=== PATIENT | male | born 1940 | race Caucasian/White ===

== ENCOUNTER → 2018-03-30 | Outpatient (CLI) | payer MEDICARE ==
[~2018-03-30] MED LIST: ACHYD1T PO; ASP81TEC PO; ATOR40TA PO; CPR500T PO; MTF500T PO; OXYC1TAB87 PO; PHEN200T27 PO; TMSL.4C PO
--- NOTE | 2018-03-30 09:53 | Diagnostic Imaging Report ---
PROCEDURE: CT urinary tract, rule out kidney stone. TECHNIQUE: Multiple contiguous axial images were obtained through the abdomen and pelvis without the use of intravenous contrast. INDICATION: Hematuria. Comparison is made with prior CT from 10/20/2012. The lung bases are clear. No discrete liver mass is detected. The gallbladder is surgically absent. No biliary ductal dilatation is seen. Pancreas and spleen are unremarkable. No adrenal mass is seen. There is a slight prominent portacaval node measuring 2.6-1.3 cm. The right kidney is unremarkable. There are several punctate nonobstructing calculi in the upper and lower pole of the left kidney. No definite ureteral calculi or hydronephrosis is seen. Aorta is not aneurysmal. No central retroperitoneal or mesenteric lymphadenopathy is detected. There is a generalized colonic diverticulosis but no evidence of acute diverticulitis. Imaging through the pelvis is limited due to streak artifact from patient's bilateral hip prostheses. There does appear to be some wall thickening of the urinary bladder, particularly along the left lateral wall measuring to a thickness of 7 mm. Radiation seed implants within the prostate are noted. Bony structures are nonacute. Impression: 1. Tiny nonobstructing left renal calculi. 2. Bladder wall thickening along the left lateral bladder wall. A bladder neoplasm cannot be entirely excluded. Cystoscopy would be recommended for further evaluation. 3. Uncomplicated colonic diverticulosis. Dictated by: Dictated on workstation # [id number]
== END ==
LOC: RAD 08:29
PROVIDERS: ATTEND Urology
DX: N32.89 Other specified disorders of bladder (principal); N20.0 Calculus of kidney; K57.30 Diverticulosis of large intestine without perforation or abscess without bleeding; Z90.49 Acquired absence of other specified parts of digestive tract
CPT/HCPCS: 74176

== ENCOUNTER 2018-04-02 12:45 | Inpatient (IN) | payer MEDICARE ==
[~2018-04-02] VITALS: Ht 177.8 cm; Wt 108.9 kg
--- OUTSIDE RECORDS SUMMARY | 2018-04-02 12:49 | XMS REPORT ---
Author Author LUPIS CAMPO [facility] Address [address] [place] [address] Care Team Providers Care Traffic Line Painter Name Role Phone LUPIS CAMPO Unavailable PROBLEMS Type Condition ICD9-CM Code [id number] Code Onset Dates Condition Status SNOMED Code Problem Prostate cancer C61 Active 839970674 Problem Comprehensive diabetic foot examination, type 2 DM, encounter for E11.9 Active 17762210 Problem Type II or unspecified type diabetes mellitus without mention of complication, not stated as uncontrolled E11.9 Active 56355161 Problem Insomnia, unspecified 780.52 Active 257889241 Problem Essential (primary) hypertension I10 Active 24927169 Problem Other obesity due to excess calories E66.09 Active 006773029 Problem Hammertoe of right foot M20.41 Active 014248348 Problem Body mass index (BMI) of 33.0-33.9 in adult Z68.33 Active 116694025 Problem Diabetic polyneuropathy associated with type 2 diabetes mellitus E11.42 Active 97854322 Problem Type 2 diabetes mellitus with complication, without long-term current use of insulin E11.8 Active 76432597 ALLERGIES No Known Allergies ENCOUNTERS Encounter Location Date Diagnosis [facility] [address] [facility] [id number] [place] [id number] Sep, Type 2 diabetes mellitus with complication, without long-term current use of insulin E11.8 [facility] [address] [facility] [id number] [id number] Jun, Encounter for diabetic foot exam E11.9 ; Type 2 diabetes mellitus with complication, without long-term current use of insulin E11.8 ; Diabetic polyneuropathy associated with type 2 diabetes mellitus E11.42 ; Hammertoe of right foot M20.41 ; Essential (primary) hypertension I10 ; Other obesity due to excess calories E66.09 and Body mass index (BMI) of 33.0-33.9 in adult Z68.33 [facility] [address] [id number] [place] [id number] May, Type II or unspecified type diabetes mellitus without mention of complication, not stated as uncontrolled E11.9 and Prostate cancer C61 [facility] [address] [id number] [place] [id number] Feb, Type II or unspecified type diabetes mellitus without mention of complication, not stated as uncontrolled E11.9 [facility] [address] [id number] [place] [id number] Feb, Type II or unspecified type diabetes mellitus without mention of complication, not stated as uncontrolled E11.9 [facility] [address] [id number] [place] [id number] Dec, Comprehensive diabetic foot examination, type 2 DM, encounter for E11.9 [facility] [address] [id number] [place] [id number] Nov, Type II or unspecified type diabetes mellitus without mention of complication, not stated as uncontrolled E11.9 [facility] [address] [id number] [place] [id number] Nov, Type II or unspecified type diabetes mellitus without mention of complication, not stated as uncontrolled E11.9 and Plantar callus L84 [facility] [id number] [place] [address], [place] [id number] Oct, Medicare welcome exam Z00.00 and Encounter for immunization Z23 [facility] [id number] [place] [id number] July, [facility] [address] [id number] [place] [id number] July, Type II or unspecified type diabetes mellitus without mention of complication, not stated as uncontrolled E11.9 [facility] [address] [id number] [place] [id number] Mar, Type II or unspecified type diabetes mellitus without mention of complication, not stated as uncontrolled E11.9 [facility] [address] [id number] [place] [id number] Feb, [facility] [address] [id number] [place] [id number] Feb, [facility] [address] [id number] [phone] Dec, Type II or unspecified type diabetes mellitus without mention of complication, not stated as uncontrolled E11.9 and Encounter for immunization Z23 [facility] [id number] [place] [id number] Aug, Type II or unspecified type diabetes mellitus without mention of complication, not stated as uncontrolled E11.9 [facility] [id number] [place] [id number] May, Type II or unspecified type diabetes mellitus without mention of complication, not stated as uncontrolled E11.9 [facility] [place] [id number] [place] [id number] Feb, Type II or unspecified type diabetes mellitus without mention of complication, not stated as uncontrolled E11.9 and Prostate cancer C61 [facility] [place] [address] [id number] [id number] Jan, [facility] [address] [id number] [place] [id number] Dec, [place] [id number] [place] [id number] Nov, Diabetes mellitus without mention of complication, type II or unspecified type, not stated as uncontrolled 250.00 [facility] [address] [place] [id number] Sep, [place] [id number] [place] [id number] Aug, Diabetes mellitus without mention of complication, type II or unspecified type, not stated as uncontrolled 250.00 and Neoplasm of unspecified nature of other genitourinary organs 239.5 [facility] [id number] [place] [address] Jun, [facility] [id number] [place] [address] Jun, [facility] [address] [place] [id number] Feb, [facility] [place] [facility] [address] [facility] [id number], [place] [address] Feb, [facility] [address] [facility] [id number][place] [phone] Feb, [facility] [place] [facility] [address] [facility] [id number], [place] [address] Feb, [facility] [address] [facility] [id number][place] [id number] Dec, [facility] [place] [facility] [address] [facility] [id number], [place] [address] Dec, [facility] [address] [facility] [id number][place] [phone] Sep, [facility] [place] [facility] [address] [facility] [id number], [place] [address] Sep, [facility] [address] [facility] [id number][place] [id number] May, [facility] [place] [facility] [address] [facility] [id number], [place] [address] May, [facility] [place] [facility] [address] [facility] [id number], [place] [address] May, [facility] [place] [facility] [address] [facility] [id number], [place] [address] May, [facility] [place] [facility] [address] [facility] [id number], [place] [address] Apr, [facility] [place] [facility] [address] [facility] [id number], [place] [address] Apr, [facility] [place] [facility] [address] [facility] [id number], [place] [address] Mar, [facility] [place] [facility] [address] [facility] [id number], [place] [address] Mar, [facility] [address] [facility] [id number], [place] [id number] Feb, [facility] [place] [facility] [address] [facility] [id number], [place] [address] Feb, [facility] [address] [facility] [id number], [place] [address] Feb, [facility] [address] [facility] [id number], [place] [id number] Feb, [facility] [address] [facility] [id number], [place] [id number] Feb, [facility] [address] [facility] [id number], [place] [address] Feb, [facility] [address] [facility] [id number][place] [id number] Jan, [facility] [address] [facility] [id number], [place] [address] Jan, IMMUNIZATIONS No Known Immunizations SOCIAL HISTORY Never Assessed REASON FOR VISIT diabetic may Batres RN PLAN OF CARE Activity Details Follow Up keep as scheduled with Edward WANG Reason: VITAL SIGNS Height 70.5 in 2017-06-14 Weight 234.8 lbs 2017-06-14 Temperature 97.3 degrees Fahrenheit 2017-06-14 Heart Rate 78 bpm 2017-06-14 Respiratory Rate 18 2017-06-14 BMI 33.21 kg/m2 2017-06-14 Blood pressure systolic 142 mmHg 2017-06-14 Blood pressure diastolic 86 mmHg 2017-06-14 MEDICATIONS Medication Instructions Dosage Frequency Start Date End Date Duration Status TRUEtest Test - as directed Aug, Active Metformin HCl 500 MG Orally twice a day 2 tab am 1 tab pm 12h Active Aspirin 325 MG Orally Once a day 1 tablet 24h Active Lipitor 40 mg Orally Once a day 1 tablet 24h Active Lisinopril 10 mg Orally Once a day 1 tablet 24h Feb, Active Flomax 0.4 mg take 1 capsule (0.4 mg) by oral route once daily 1/2 hour following the same meal each day Feb, Active RESULTS No Results PROCEDURES Procedure Date Ordered Result Body Site COUNT INCLUDES THE [facility] VISIT ESTABLISHED PATIENT June 14, 2017 COUNT INCLUDES THE [facility] VISIT ESTABLISHED PATIENT June 14, 2017 INSTRUCTIONS MEDICATIONS ADMINISTERED No Known Medications MEDICAL (GENERAL) HISTORY Type Description Date Medical History type II diabetes Medical History prostate cancer Surgical History cholecystectomy 2012 Surgical History prostate surgery, seeded prostate 2012 Surgical History left hip replacement x 3 2012 Surgical History left shoulder surgery 2014 Surgical History right ankle fused 2003 Surgical History lithotripsy 2003 Hospitalization History surgeries
--- OUTSIDE RECORDS SUMMARY | 2018-04-02 12:49 | XMS REPORT ---
Author Author SHAGGY BEY [facility] Address [address] [place] [address] Care Team Providers Care Information Assurance Manager Name Role Phone SHAGGY BEY Unavailable PROBLEMS Type Condition ICD9-CM Code OLR66-FS Code Onset Dates Condition Status SNOMED Code Problem Prostate cancer C61 Active 345718565 Problem Comprehensive diabetic foot examination, type 2 DM, encounter for E11.9 Active 97574421 Problem Type II or unspecified type diabetes mellitus without mention of complication, not stated as uncontrolled E11.9 Active 75414896 Problem Insomnia, unspecified 780.52 Active 213574134 Problem Essential (primary) hypertension I10 Active 99945762 Problem Other obesity due to excess calories E66.09 Active 938440737 Problem Hammertoe of right foot M20.41 Active 470748748 Problem Body mass index (BMI) of 33.0-33.9 in adult Z68.33 Active 026416781 Problem Diabetic polyneuropathy associated with type 2 diabetes mellitus E11.42 Active 16838270 Problem Type 2 diabetes mellitus with complication, without long-term current use of insulin E11.8 Active 58656878 ALLERGIES No Known Allergies ENCOUNTERS Encounter Location Date Diagnosis [id number] [id number] Oct, Encounter for removal of sutures Z48.[address] [place] [id number] Sep, Type 2 diabetes mellitus with complication, without long-term current use of insulin E11.8 [address] [place] [address] [id number] Jun, Encounter for diabetic foot exam E11.9 ; Type 2 diabetes mellitus with complication, without long-term current use of insulin E11.8 ; Diabetic polyneuropathy associated with type 2 diabetes mellitus E11.42 ; Hammertoe of right foot M20.41 ; Essential (primary) hypertension I10 ; Other obesity due to excess calories E66.09 and Body mass index (BMI) of 33.0-33.9 in adult Z68.33 [facility] [id number] [place] [address] [id number] May, Type II or unspecified type diabetes mellitus without mention of complication, not stated as uncontrolled E11.9 and Prostate cancer C61 [facility] [id number] [place] [address] [id number] Feb, Type II or unspecified type diabetes mellitus without mention of complication, not stated as uncontrolled E11.9 [facility] [address] [id number] [place] [id number] Feb, Type II or unspecified type diabetes mellitus without mention of complication, not stated as uncontrolled E11.9 [facility] [id number] [place] [address], [place] [id number] Dec, Comprehensive diabetic foot examination, type 2 DM, encounter for E11.9 [facility] [id number] [place] [address] [id number] Nov, Type II or unspecified type diabetes mellitus without mention of complication, not stated as uncontrolled E11.9 [facility] [id number] [place] [address] [id number] Nov, Type II or unspecified type diabetes mellitus without mention of complication, not stated as uncontrolled E11.9 and Plantar callus L84 [facility] [id number] [place] [address] [id number] Oct, Medicare welcome exam Z00.00 and Encounter for immunization Z23 [facility] [id number] [place] [address] [id number] July, [facility] [id number] [place] [address] [id number] July, Type II or unspecified type diabetes mellitus without mention of complication, not stated as uncontrolled E11.9 [facility] [id number] [place] [address], [place] [id number] Mar, Type II or unspecified type diabetes mellitus without mention of complication, not stated as uncontrolled E11.9 [facility] [id number] [place] [address] [id number] Feb, [facility] [address] [id number] [id number] Feb, [facility] [id number], [place] [id number] Dec, Type II or unspecified type diabetes mellitus without mention of complication, not stated as uncontrolled E11.9 and Encounter for immunization Z23 [facility] [id number], [place] [id number] Aug, Type II or unspecified type diabetes mellitus without mention of complication, not stated as uncontrolled E11.9 [facility] [id number], [place] [id number] May, Type II or unspecified type diabetes mellitus without mention of complication, not stated as uncontrolled E11.9 [facility] [id number], [place] [id number] Feb, Type II or unspecified type diabetes mellitus without mention of complication, not stated as uncontrolled E11.9 and Prostate cancer C61 [facility] [address] [facility] [address] [id number][place] [phone] Jan, [facility] [address] [id number], [place] [id number] Dec, [facility] [id number], [place] [id number] Nov, Diabetes mellitus without mention of complication, type II or unspecified type, not stated as uncontrolled 250.00 [facility] [id number], [place] [id number] Sep, [facility] [id number], [place] [id number] Aug, Diabetes mellitus without mention of complication, type II or unspecified type, not stated as uncontrolled 250.00 and Neoplasm of unspecified nature of other genitourinary organs 239.5 [facility] [address]00565100[place], [place] [address] Jun, [facility] [address]005[address]100[place], [place] [address] Jun, [facility] [address] [id number] [id number] Feb, [facility] [address] [facility] [id number], [place] [address]- [address] Feb, [facility] [address] [facility] [id number] [place] [id number] Feb, [facility] [place] [facility] [address] [facility] [id number], [place] [address] Feb, [facility] [address] [facility] [id number] [place] [id number] Dec, [facility] [place] [facility] [address] [facility] [id number] [place] [address]- [address] Dec, [facility] [address] [facility] [id number], [place] [id number] Sep, [facility] [place] [facility] [address]005[address]100[place], [place] [address] Sep, [facility] [address] [facility] [id number][place] [id number] May, [facility] [place] [facility] [address] [id number] [place] [address]- [address] May, [facility] [place] [facility] [address]100[place], [place] [address] May, [facility] [place] [facility] [address] [id number], [place] [address] May, [facility] [place] [facility] [address] [facility] [id number], [place] [address] Apr, [facility] [place] [facility] [address] [facility] [id number] [place] [address]- [address] Apr, [facility] [place] [facility] [address] [facility] [id number] [place] [address]- [address] Mar, [facility] [place] [facility] [address] [facility] [id number], [place] [address]- [address] Mar, [facility] [address] [facility] [id number], [place] [id number] Feb, [facility] [address] [facility] [id number] [place] [address] Feb, [facility] [address]00565100[place], [place] [address] Feb, [facility] [address] [id number], [place] [id number] Feb, [facility] [address] [id number], [place] [id number] Feb, [facility] [address] [facility] [id number], [place] [address] Feb, [facility] [address]005[address] [id number] Jan, [facility] [address] [facility] [id number], [place] [address] Jan, IMMUNIZATIONS No Known Immunizations SOCIAL HISTORY Never Assessed REASON FOR VISIT Diabetes follow up Medardo ZURITA PLAN OF CARE Activity Details Follow Up 3 Months Reason:dm VITAL SIGNS Height 70.5 in 2017-09-28 Weight 232 lbs 2017-09-28 Temperature 97.3 degrees Fahrenheit 2017-09-28 Heart Rate 76 bpm 2017-09-28 Respiratory Rate 16 2017-09-28 BMI 32.81 kg/m2 2017-09-28 Blood pressure systolic 128 mmHg 2017-09-28 Blood pressure diastolic 68 mmHg 2017-09-28 MEDICATIONS Medication Instructions Dosage Frequency Start Date End Date Duration Status Aspirin 325 MG Orally Once a day 1 tablet 24h Active Lisinopril 10 mg Orally Once a day 1 tablet 24h Feb, Active Metformin HCl 500 mg Orally twice a day 2 tab am 1 tab pm 12h Active TRUEtest Test - as directed Aug, Active Flomax 0.4 mg take 1 capsule (0.4 mg) by oral route once daily 1/2 hour following the same meal each day Feb, Active Lipitor 40 mg Orally Once a day 1 tablet 24h 0 Active RESULTS Name Result Date Reference Range A1C (IN HOUSE) 2017-09-28 A1C IN HOUSE 6.2 4.3 - 5.6 % Previous A1c 6.8 Lot [id number] Exp date 07/24 PROCEDURES Procedure Date Ordered Result Body Site [facility] VISIT ESTABLISHED PATIENT September 28, 2017 GLYCATED HEMOGLOBIN TEST September 28, 2017 INSTRUCTIONS MEDICATIONS ADMINISTERED No Known Medications MEDICAL (GENERAL) HISTORY Type Description Date Medical History type II diabetes Medical History prostate cancer Surgical History cholecystectomy 2012 Surgical History prostate surgery, seeded prostate 2013 Surgical History left hip replacement x 3 2012 Surgical History left shoulder surgery 2014 Surgical History right ankle fused 2002 Surgical History lithotripsy 2002 Hospitalization History surgeries
--- OUTSIDE RECORDS SUMMARY | 2018-04-02 12:49 | XMS REPORT ---
Author Author SHAGGY BEY [facility] Address [address] [place] [address] Care Team Providers Care Tooth Cutter Pinion Name Role Phone SHAGGY BEY Unavailable PROBLEMS Type Condition ICD9-CM Code [id number] Code Onset Dates Condition Status SNOMED Code Problem Prostate cancer C61 Active 098356989 Problem Comprehensive diabetic foot examination, type 2 DM, encounter for E11.9 Active 61338782 Problem Type II or unspecified type diabetes mellitus without mention of complication, not stated as uncontrolled E11.9 Active 40916145 Problem Insomnia, unspecified 780.52 Active 730384672 Problem Essential (primary) hypertension I10 Active 23583194 Problem Other obesity due to excess calories E66.09 Active 572588301 Problem Hammertoe of right foot M20.41 Active 561890039 Problem Body mass index (BMI) of 33.0-33.9 in adult Z68.33 Active 954370913 Problem Diabetic polyneuropathy associated with type 2 diabetes mellitus E11.42 Active 44981866 Problem Type 2 diabetes mellitus with complication, without long-term current use of insulin E11.8 Active 38083253 ALLERGIES No Known Allergies ENCOUNTERS Encounter Location Date Diagnosis [id number] [id number] Sep, [address] [place] [id number] Jun, Encounter for diabetic foot exam E11.9 ; Type 2 diabetes mellitus with complication, without long-term current use of insulin E11.8 ; Diabetic polyneuropathy associated with type 2 diabetes mellitus E11.42 ; Hammertoe of right foot M20.41 ; Essential (primary) hypertension I10 ; Other obesity due to excess calories E66.09 and Body mass index (BMI) of 33.0-33.9 in adult Z68.33 [id number] [id number] May, Type II or unspecified type diabetes mellitus without mention of complication, not stated as uncontrolled E11.9 and Prostate cancer C61 [facility] [address] [id number] [place] [id number] Feb, Type II or unspecified type diabetes mellitus without mention of complication, not stated as uncontrolled E11.9 [facility] [address] [id number] [place] [id number] Feb, Type II or unspecified type diabetes mellitus without mention of complication, not stated as uncontrolled E11.9 [facility] [address] [id number] [place] [id number] Dec, Comprehensive diabetic foot examination, type 2 DM, encounter for E11.9 [facility] [address] [id number] [place] [id number] Nov, Type II or unspecified type diabetes mellitus without mention of complication, not stated as uncontrolled E11.9 [facility] [address] [id number] [place] [id number] Nov, Type II or unspecified type diabetes mellitus without mention of complication, not stated as uncontrolled E11.9 and Plantar callus L84 [facility] [id number] [place] [address], [place] [id number] Oct, Medicare welcome exam Z00.00 and Encounter for immunization Z23 [facility] [address] [id number] [place] [id number] July, [facility] [id number] [place] [address], [place] [id number] July, Type II or unspecified type diabetes mellitus without mention of complication, not stated as uncontrolled E11.9 [facility] [address] [id number] [place] [id number] Mar, Type II or unspecified type diabetes mellitus without mention of complication, not stated as uncontrolled E11.9 [facility] [address] [id number] [place] [id number] Feb, [facility] [address] [id number] [place] [id number] Feb, [facility] [address] [id number] [place] [id number] Dec, Type II or unspecified type diabetes mellitus without mention of complication, not stated as uncontrolled E11.9 and Encounter for immunization Z23 [facility] [id number] [place] [id number] Aug, Type II or unspecified type diabetes mellitus without mention of complication, not stated as uncontrolled E11.9 [facility] [place] [facility] [id number] [place] [id number] May, Type II or unspecified type diabetes mellitus without mention of complication, not stated as uncontrolled E11.9 [facility] [id number] [place] [address] [id number] Feb, Type II or unspecified type diabetes mellitus without mention of complication, not stated as uncontrolled E11.9 and Prostate cancer C61 [facility] [place] [facility] TIJERINA [address] [id number] [id number] Jan, [facility] [place] [facility] [address] [id number] [id number] Dec, [facility] [place] [facility] [id number] [place] [id number] Nov, Diabetes mellitus without mention of complication, type II or unspecified type, not stated as uncontrolled 250.00 [facility] [place] [facility] [address] [place] [id number] Sep, [address] [place] [id number] Aug, Diabetes mellitus without mention of complication, type II or unspecified type, not stated as uncontrolled 250.00 and Neoplasm of unspecified nature of other genitourinary organs 239.5 [facility] [address], [place] [address] Jun, [facility] [id number] [place] [address] Jun, [facility] [address] [place] [id number] Feb, [facility] [id number] [place] [address] Feb, [facility] 120 [facility] [id number] [place] [phone] Feb, [facility] [address] [id number], [place] [address] Feb, [facility] [address] [facility] [id number] [place] [phone] Dec, [facility] [address] [id number], [place] [address] Dec, [facility] [address] [id number] [place] [id number] Sep, [facility] [address] [id number], [place] [address] Sep, [facility] [address] [facility] [id number][place] [id number] May, [facility] [place] [facility] [address] [facility] [id number], [place] [address] May, [facility] [place] [facility] [address] [id number], [place] [address] May, [facility] [place] [facility] [address] [facility] [id number], [place] [address] May, [facility] [place] [facility] [address] [facility] [id number], [place] [address] Apr, [facility] [place] [facility] [address] [facility] [id number], [place] [address] Apr, [facility] [place] [facility] [address] [id number], [place] [address] Mar, [facility] [place] [facility] [address] [id number], [place] [address] Mar, [facility] [address] [facility] [id number], [place] [id number] Feb, [facility] [place] [facility] [address] [id number] [place] [address] Feb, [facility] [place] [facility] [address] [facility] [id number], [place] [address] Feb, [facility] [address] [facility] [id number], [place] [phone] Feb, [facility] [address] [id number], [place] [phone] Feb, [facility] [address] [id number], [place] [address] Feb, [facility] [address] [id number], [place] [phone] Jan, [facility] [address] [facility] [id number], [place] [address] Jan, IMMUNIZATIONS No Known Immunizations SOCIAL HISTORY Never Assessed REASON FOR VISIT 3 month follow up on diabetes. gustavo Chapin PLAN OF CARE Activity Details Follow Up 3 Months Reason:dm VITAL SIGNS Height 70.5 in 2017-05-25 Weight 233 lbs 2017-05-25 Temperature 98.6 degrees Fahrenheit 2017-05-25 Heart Rate 52 bpm 2017-05-25 Respiratory Rate 20 2017-05-25 BMI 32.96 kg/m2 2017-05-25 Blood pressure systolic 130 mmHg 2017-05-25 Blood pressure diastolic 74 mmHg 2017-05-25 MEDICATIONS Medication Instructions Dosage Frequency Start Date End Date Duration Status Flomax 0.4 mg take 1 capsule (0.4 mg) by oral route once daily 1/2 hour following the same meal each day Feb, Active Metformin HCl 500 MG Orally twice a day 2 tab am 1 tab pm 12h Active Lipitor 40 mg Orally Once a day 1 tablet 24h Active Lisinopril 10 mg Orally Once a day 1 tablet 24h Feb, Active TRUEtest Test - as directed Aug, Active Aspirin 325 MG Orally Once a day 1 tablet 24h Active RESULTS Name Result Date Reference Range A1C (IN HOUSE) 2017-05-25 A1C IN HOUSE 6.8 4.3 - 5.6 % Previous A1c 6.2 Lot [id number] Exp date 01/23 PROCEDURES Procedure Date Ordered Result Body Site [facility] ESTABLISHED PATIENT May 25, 2017 GLYCATED HEMOGLOBIN TEST May 25, 2017 INSTRUCTIONS MEDICATIONS ADMINISTERED No Known Medications MEDICAL (GENERAL) HISTORY Type Description Date Medical History type II diabetes Medical History prostate cancer Surgical History cholecystectomy 2012 Surgical History prostate surgery, seeded prostate 2013 Surgical History left hip replacement x 3 2012 Surgical History left shoulder surgery 2014 Surgical History right ankle fused 2002 Surgical History lithotripsy 2003 Hospitalization History surgeries
--- OUTSIDE RECORDS SUMMARY | 2018-04-02 12:49 | XMS REPORT ---
Author Author TERRENCE ESPARZA [facility] Address [address] [place] [address] Care Team Providers Care Stockholder Name Role Phone VILMA TERRENCE Unavailable PROBLEMS Type Condition ICD9-CM Code YVZ31-HQ Code Onset Dates Condition Status SNOMED Code Problem Prostate cancer C61 Active 279789118 Problem Comprehensive diabetic foot examination, type 2 DM, encounter for E11.9 Active 01198537 Problem Type II or unspecified type diabetes mellitus without mention of complication, not stated as uncontrolled E11.9 Active 29157982 Problem Insomnia, unspecified 780.52 Active 540291681 Problem Essential (primary) hypertension I10 Active 15421400 Problem Other obesity due to excess calories E66.09 Active 884811667 Problem Hammertoe of right foot M20.41 Active 106203423 Problem Body mass index (BMI) of 33.0-33.9 in adult Z68.33 Active 654723148 Problem Diabetic polyneuropathy associated with type 2 diabetes mellitus E11.42 Active 66278681 Problem Type 2 diabetes mellitus with complication, without long-term current use of insulin E11.8 Active 46428708 ALLERGIES No Known Allergies ENCOUNTERS Encounter Location Date Diagnosis [id number] [phone] Oct, Encounter for removal of sutures Z48.02 [id number] [place] [id number] Sep, Type 2 diabetes mellitus with complication, without long-term current use of insulin E11.8 [address] [place] [phone] Jun, Encounter for diabetic foot exam E11.9 ; Type 2 diabetes mellitus with complication, without long-term current use of insulin E11.8 ; Diabetic polyneuropathy associated with type 2 diabetes mellitus E11.42 ; Hammertoe of right foot M20.41 ; Essential (primary) hypertension I10 ; Other obesity due to excess calories E66.09 and Body mass index (BMI) of 33.0-33.9 in adult Z68.33 [facility] [id number] [place] [address] [id number] May, Type II or unspecified type diabetes mellitus without mention of complication, not stated as uncontrolled E11.9 and Prostate cancer C61 [facility] [id number] [place] [address] [id number] Feb, Type II or unspecified type diabetes mellitus without mention of complication, not stated as uncontrolled E11.9 [facility] [address] [id number] [place] [phone] Feb, Type II or unspecified type diabetes mellitus without mention of complication, not stated as uncontrolled E11.9 [facility] [id number] [place] [address], [place] [phone] Dec, Comprehensive diabetic foot examination, type 2 DM, encounter for E11.9 [facility] [id number] [place] [address] [id number] Nov, Type II or unspecified type diabetes mellitus without mention of complication, not stated as uncontrolled E11.9 [facility] [id number] [place] [address] [id number] Nov, Type II or unspecified type diabetes mellitus without mention of complication, not stated as uncontrolled E11.9 and Plantar callus L84 [facility] MCGEEJAYESH [id number] [place] [address] [phone] Oct, Medicare welcome exam Z00.00 and Encounter for immunization Z23 [facility] MCGEEJ[facility] [id number] [place] [address] [phone] July, [facility] [id number] [place] [address] [id number] July, Type II or unspecified type diabetes mellitus without mention of complication, not stated as uncontrolled E11.9 [facility] [id number] [place] [address], [place] [phone] Mar, Type II or unspecified type diabetes mellitus without mention of complication, not stated as uncontrolled E11.9 [facility] [id number] [place] [address] [id number] Feb, [facility] [address] [id number] [id number] Feb, [facility] [place] [id number], [place] [phone] Dec, Type II or unspecified type diabetes mellitus without mention of complication, not stated as uncontrolled E11.9 and Encounter for immunization Z23 [facility] [id number], [place] [id number] Aug, Type II or unspecified type diabetes mellitus without mention of complication, not stated as uncontrolled E11.9 [facility] [id number], [place] [id number] May, Type II or unspecified type diabetes mellitus without mention of complication, not stated as uncontrolled E11.9 [facility] [id number], [place] [id number] Feb, Type II or unspecified type diabetes mellitus without mention of complication, not stated as uncontrolled E11.9 and Prostate cancer C61 [facility] [address] [id number] [phone] Jan, [facility] [address] [id number], [place] [phone] Dec, [facility] [place] [id number], [place] [phone] Nov, Diabetes mellitus without mention of complication, type II or unspecified type, not stated as uncontrolled 250.00 [facility] [id number], [place] [phone] Sep, [facility] [place] [id number], [place] [phone] Aug, Diabetes mellitus without mention of complication, type II or unspecified type, not stated as uncontrolled 250.00 and Neoplasm of unspecified nature of other genitourinary organs 239.5 [facility] [address]005[address]100[place] [address] Jun, [facility] [address]00565100[place] [address] Jun, [facility] [address] [id number] [phone] Feb, [facility] [address] [facility] [id number] [place] [address] Feb, [facility] [place] [address] [facility] [id number] [place] [phone] Feb, [facility] [place] [facility] [address] [facility] [id number] [place] [address] Feb, [facility] [address] [facility] [id number] [place] [phone] Dec, [facility] [place] [facility] [address] [facility] [id number] [place] [address]- [address] Dec, [facility] [address] [facility] [id number], [place] [id number] Sep, [facility] [place] [facility] [address]005[address]100[place] [address] Sep, [facility] [address] [facility] [id number][place] [id number] May, [facility] [place] [facility] [address] [id number] [place] [address] May, [facility] [place] [facility] [address] [address] May, [facility] [place] [facility] [address] [id number] [address] May, [facility] [place] [facility] [address] [facility] [id number] [place] [address] Apr, [facility] [place] [facility] [address] [facility] [id number] [place] [address]- [address] Apr, [facility] [place] [facility] [address] [facility] [id number] [place] [address] Mar, [facility] [place] [facility] [address] [facility] [id number] [place] [address] Mar, [facility] [place] [address] [facility] [id number], [place] [id number] Feb, [facility] [address] [facility] [id number] [place] [address] Feb, [facility] [address] [address] Feb, [facility] [address] [id number], [place] [id number] Feb, [facility] [id number], [place] [id number] Feb, [facility] [address] [facility] [id number] [place] [address] Feb, [facility] [address], [place] [id number] Jan, [facility] [address]005[address] [address] Jan, IMMUNIZATIONS No Known Immunizations SOCIAL HISTORY Never Assessed REASON FOR VISIT here for suture removal, Went to [facility] a week ago yesterday. Cut thumb on ceramic tile. ugstavo Chapin PLAN OF CARE Activity Details Follow Up prn Reason: VITAL SIGNS Height 70.5 in 2017-10-28 Weight 233 lbs 2017-10-28 Temperature 98.2 degrees Fahrenheit 2017-10-28 Heart Rate 64 bpm 2017-10-28 Respiratory Rate 16 2017-10-28 BMI 32.96 kg/m2 2017-10-28 Blood pressure systolic 118 mmHg 2017-10-28 Blood pressure diastolic 70 mmHg 2017-10-28 MEDICATIONS Medication Instructions Dosage Frequency Start Date End Date Duration Status Flomax 0.4 mg take 1 capsule (0.4 mg) by oral route once daily 1/2 hour following the same meal each day Feb, Active Lipitor 40 mg Orally Once a day 1 tablet 24h 0 Active TRUEtest Test - as directed Aug, Active Aspirin 325 MG Orally Once a day 1 tablet 24h Active Lisinopril 10 mg Orally Once a day 1 tablet 24h Feb, Active Metformin HCl 500 mg Orally twice a day 2 tab am 1 tab pm 12h Active RESULTS No Results PROCEDURES Procedure Date Ordered Result Body Site [facility]ISIT ESTABLISHED PATIENT Oct 28, 2017 REMOV CRISELDA; NOT WHO CLOS WND Oct 28, 2017 INSTRUCTIONS MEDICATIONS ADMINISTERED No Known [...]
--- OUTSIDE RECORDS SUMMARY | 2018-04-02 12:50 | XMS REPORT ---
Author Author SHAGGY BEY [facility] Address [address] [place] [address] Care Team Providers Care Veneer Taping Machine Operator Name Role Phone SHAGGY BEY Unavailable PROBLEMS Type Condition ICD9-CM Code LJM53-OB Code Onset Dates Condition Status SNOMED Code Problem Type II or unspecified type diabetes mellitus without mention of complication, not stated as uncontrolled E11.9 Active 05882517 Problem Prostate cancer C61 Active 593779781 Problem Insomnia, unspecified 780.52 Active 035437837 ALLERGIES Unknown Allergies SOCIAL HISTORY No smoking Hx information available PLAN OF CARE VITAL SIGNS MEDICATIONS Unknown Medications RESULTS No Results PROCEDURES No Known procedures IMMUNIZATIONS No Known Immunizations
--- OUTSIDE RECORDS SUMMARY | 2018-04-02 12:50 | XMS REPORT ---
Author Author SHAGGY BEY [facility] Address [address] [place] [address] Care Team Providers Care Marketing Ambassador Name Role Phone BEY SHAGGY Unavailable PROBLEMS Type Condition ICD9-CM Code NYC11-ZL Code Onset Dates Condition Status SNOMED Code Problem Prostate cancer C61 Active 768583934 Problem Comprehensive diabetic foot examination, type 2 DM, encounter for E11.9 Active 76430795 Problem Type II or unspecified type diabetes mellitus without mention of complication, not stated as uncontrolled E11.9 Active 59919294 Problem Insomnia, unspecified 780.52 Active 945036016 Problem Essential (primary) hypertension I10 Active 44751854 Problem Other obesity due to excess calories E66.09 Active 433336214 Problem Hammertoe of right foot M20.41 Active 196578438 Problem Body mass index (BMI) of 33.0-33.9 in adult Z68.33 Active 491455907 Problem Diabetic polyneuropathy associated with type 2 diabetes mellitus E11.42 Active 01829476 Problem Type 2 diabetes mellitus with complication, without long-term current use of insulin E11.8 Active 96102399 ALLERGIES No Information ENCOUNTERS Encounter Location Date Diagnosis [place] [id number] [place] [id number] Jun, Encounter for diabetic foot exam E11.9 ; Type 2 diabetes mellitus with complication, without long-term current use of insulin E11.8 ; Diabetic polyneuropathy associated with type 2 diabetes mellitus E11.42 ; Hammertoe of right foot M20.41 ; Essential (primary) hypertension I10 ; Other obesity due to excess calories E66.09 and Body mass index (BMI) of 33.0-33.9 in adult Z68.33 [place] [place] [id number] [id number] May, Type II or unspecified type diabetes mellitus without mention of complication, not stated as uncontrolled E11.9 and Prostate cancer C61 [place] [address] [id number] [place] [id number] Feb, Type II or unspecified type diabetes mellitus without mention of complication, not stated as uncontrolled E11.9 [facility] [place] [address] [id number] [place] [id number] Feb, Type II or unspecified type diabetes mellitus without mention of complication, not stated as uncontrolled E11.9 [facility] JAYESH [address] [id number] [place] [id number] Dec, Comprehensive diabetic foot examination, type 2 DM, encounter for E11.9 [facility] JAYESH [address] [id number] [place] [id number] Nov, Type II or unspecified type diabetes mellitus without mention of complication, not stated as uncontrolled E11.9 [facility] [place] [address] [place] [id number] [place] [id number] Nov, Type II or unspecified type diabetes mellitus without mention of complication, not stated as uncontrolled E11.9 and Plantar callus L84 [facility] [id number] [place] [id number] Oct, Medicare welcome exam Z00.00 and Encounter for immunization Z23 [facility] [place] [address] [id number] [place] [id number] July, [facility] [place] [id number] [place] [address], [place] [id number] July, Type II or unspecified type diabetes mellitus without mention of complication, not stated as uncontrolled E11.9 [facility] [id number] [place] [id number] Mar, Type II or unspecified type diabetes mellitus without mention of complication, not stated as uncontrolled E11.9 [facility] J[facility]ESH [address] [id number] [place] [id number] Feb, [facility] JAYESH [address] [id number] [place] [id number] Feb, [facility] [place] [address] [id number] [place] [id number] Dec, Type II or unspecified type diabetes mellitus without mention of complication, not stated as uncontrolled E11.9 and Encounter for immunization Z23 [facility] [place] [id number] [id number] Aug, Type II or unspecified type diabetes mellitus without mention of complication, not stated as uncontrolled E11.9 [facility] [id number] [place] [id number] May, Type II or unspecified type diabetes mellitus without mention of complication, not stated as uncontrolled E11.9 [facility] [id number] [place] [id number] Feb, Type II or unspecified type diabetes mellitus without mention of complication, not stated as uncontrolled E11.9 and Prostate cancer C61 [facility] T[place] [address] [facility] [address] [id number] [id number] Jan, [facility] [place] [address] [facility] [address] [id number][place] [phone] Dec, [facility] [address] [place] [id number] Nov, Diabetes mellitus without mention of complication, type II or unspecified type, not stated as uncontrolled 250.00 [facility] [place] [id number] [place] [id number] Sep, [address] [id number] [place] [id number] Aug, Diabetes mellitus without mention of complication, type II or unspecified type, not stated as uncontrolled 250.00 and Neoplasm of unspecified nature of other genitourinary organs 239.5 [facility] [id number] [place] [address] Jun, [facility] [id number] [place] [address] Jun, [facility] [id number] [place] [id number] Feb, [facility] [id number] [place] [address] Feb, [facility] [address] [place] [id number] Feb, [facility] [place] [facility] [address] [facility] [id number] [place] [address] Feb, [facility] [place]AYESH [address] [id number] [place] [id number] Dec, [facility] [place] [facility] [address] [facility] [id number] [address] Dec, [facility] [place] [address] [facility] [id number] [place] [id number] Sep, [facility] [place] [facility] [address] [facility] [id number] [place] [address] Sep, [facility] [place] [address] [id number] [place] [id number] May, [facility] [place] [facility] [address] [facility] [id number] [place] [address] May, [facility] [place] [facility] [address] [facility] [id number] [place] [address] May, [facility] [place] [facility] [address] [facility] [id number] [place] [address] May, [facility] [place] [facility] [address] [facility] [id number] [place] [address] Apr, [facility] [place] [facility] [address] [facility] [id number] [place] [address] Apr, [facility] [place] [facility] [address] [facility] [id number] [place] [address] Mar, [facility] [place] [facility] [address] [facility] [id number] [place] [address] Mar, [facility] [place] [address] [id number] [place] [id number] Feb, [facility] [place] [facility] [address] [facility] [id number] [place] [address] Feb, [facility] [place] [facility] [address] [facility] [id number] [place] [address] Feb, [facility] [address] [facility] [id number] [place] [id number] Feb, [facility] [address] [facility] [id number] [place] [phone] Feb, [facility] [address] [facility] [id number] [place] [address] Feb, [facility] [address] [facility] [id number] [place] [phone] Jan, [facility] [address] [facility] [id number] [place] [address] Jan, IMMUNIZATIONS No Known Immunizations SOCIAL HISTORY Never Assessed REASON FOR VISIT RX-Lisinopril refill PLAN OF CARE VITAL SIGNS MEDICATIONS Medication Instructions Dosage Frequency Start Date End Date Duration Status Lisinopril 10 mg Orally Once a day 1 tablet 24h Feb, Active RESULTS No Results PROCEDURES No Known procedures INSTRUCTIONS MEDICATIONS ADMINISTERED No Known Medications MEDICAL (GENERAL) HISTORY Type Description Date Medical History type II diabetes Medical History prostate cancer Surgical History cholecystectomy 2012 Surgical History prostate surgery, seeded prostate 2012 Surgical History left hip replacement x 3 2011 Surgical History left shoulder surgery 2014 Surgical History right ankle fused 2002 Surgical History lithotripsy 2003 Hospitalization History surgeries
--- OUTSIDE RECORDS SUMMARY | 2018-04-02 12:50 | XMS REPORT ---
Author Author LUPIS CAMPO [facility] Address [address] [place] [address] Care Team Providers Care Body Die Maker Name Role Phone LUPIS CAMPO Unavailable PROBLEMS Type Condition ICD9-CM Code KUB87-IC Code Onset Dates Condition Status SNOMED Code Problem Prostate cancer C61 Active 937030901 Problem Comprehensive diabetic foot examination, type 2 DM, encounter for E11.9 Active 86215891 Problem Type II or unspecified type diabetes mellitus without mention of complication, not stated as uncontrolled E11.9 Active 83522152 Problem Insomnia, unspecified 780.52 Active 685418814 Problem Essential (primary) hypertension I10 Active 56571362 Problem Other obesity due to excess calories E66.09 Active 733768542 Problem Hammertoe of right foot M20.41 Active 160874012 Problem Body mass index (BMI) of 33.0-33.9 in adult Z68.33 Active 276821406 Problem Diabetic polyneuropathy associated with type 2 diabetes mellitus E11.42 Active 95477382 Problem Type 2 diabetes mellitus with complication, without long-term current use of insulin E11.8 Active 44667394 ALLERGIES No Known Allergies ENCOUNTERS Encounter Location Date Diagnosis [facility] [address] [facility] [id number] [place] [id number] Jun, Encounter for diabetic foot exam E11.9 ; Type 2 diabetes mellitus with complication, without long-term current use of insulin E11.8 ; Diabetic polyneuropathy associated with type 2 diabetes mellitus E11.42 ; Hammertoe of right foot M20.41 ; Essential (primary) hypertension I10 ; Other obesity due to excess calories E66.09 and Body mass index (BMI) of 33.0-33.9 in adult Z68.33 [facility] [address] [facility] [id number] [place] [phone] May, Type II or unspecified type diabetes mellitus without mention of complication, not stated as uncontrolled E11.9 and Prostate cancer C61 [facility] [address] [id number] [place] [id number] Feb, Type II or unspecified type diabetes mellitus without mention of complication, not stated as uncontrolled E11.9 [facility] [address] [id number] [place] [phone] Feb, Type II or unspecified type diabetes mellitus without mention of complication, not stated as uncontrolled E11.9 [facility] [address] [id number] [place] [id number] Dec, Comprehensive diabetic foot examination, type 2 DM, encounter for E11.9 [facility] [address] [id number] [place] [id number] Nov, Type II or unspecified type diabetes mellitus without mention of complication, not stated as uncontrolled E11.9 [facility] [id number] [place] [address], [place] [id number] Nov, Type II or unspecified type diabetes mellitus without mention of complication, not stated as uncontrolled E11.9 and Plantar callus L84 [facility] [id number] [place] [address] Oct, Medicare welcome exam Z00.00 and Encounter for immunization Z23 [facility] [address] [id number] [place] [phone] July, [facility] [id number] [place] [address], [place] [id number] July, Type II or unspecified type diabetes mellitus without mention of complication, not stated as uncontrolled E11.9 [facility] [address] [id number] [place] [id number] Mar, Type II or unspecified type diabetes mellitus without mention of complication, not stated as uncontrolled E11.9 [facility] [address] [id number] [place] [phone] Feb, [facility] [address] [id number] [place] [id number] Feb, [facility] [address] [id number] [place] [id number] Dec, Type II or unspecified type diabetes mellitus without mention of complication, not stated as uncontrolled E11.9 and Encounter for immunization Z23 [facility] [id number] [id number] Aug, Type II or unspecified type diabetes mellitus without mention of complication, not stated as uncontrolled E11.9 [facility] [id number] [place] [id number] May, Type II or unspecified type diabetes mellitus without mention of complication, not stated as uncontrolled E11.9 [facility] [place] [id number] [place] [id number] Feb, Type II or unspecified type diabetes mellitus without mention of complication, not stated as uncontrolled E11.9 and Prostate cancer C61 [facility] [address] [id number][place] [id number] Jan, [facility] [address] [id number][place] [id number] Dec, [facility] [id number] [place] [phone] Nov, Diabetes mellitus without mention of complication, type II or unspecified type, not stated as uncontrolled 250.00 [facility] [address] [place] [address] [phone] Sep, [facility] [place] [id number] [place] [id number] Aug, Diabetes mellitus without mention of complication, type II or unspecified type, not stated as uncontrolled 250.00 and 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 [address] [place] [address] Jun, [facility] [id number] [place] [address] Jun, [address] [place] [id number] Feb, [facility] [id number] [place] [address]- [address] Feb, [place] [id number] [place] [id number] Feb, [facility] [place] [facility] [address] [id number] [place] [address]- 25[address] Feb, [facility] [address] [facility] [id number] [place] [phone] Dec, [facility] [address] [id number] [place] [address]- 25[address] Dec, [facility] [address] [facility] [id number] [place] [id number] Sep, [facility] [place] [facility] [address] [id number] [place] [address]- 2546 Sep, [facility] [address] [facility] [id number] [place] [id number] May, [facility] [place] [facility] [address] [facility] [id number] [place] [address]- [address] May, [facility] [place] [facility] [address] [facility] [id number] [place] [address]- [address] May, [facility] [place] [facility] [address] [facility] [id number] [place] [address]- [address] May, [facility] [place] [facility] [address] [facility] [id number] [place] [address]- [address] Apr, [facility] [place] [facility] [address] [facility] [id number] [place] [address]- [address] Apr, [facility] [place] [facility] [address] [facility] [id number], [place] [address]- [address] Mar, [facility] [place] [facility] [address] [id number] [place] [address]- [address] Mar, [facility] [address] [facility] [id number] [place] [id number] Feb, [facility] [place] [facility] [address] [id number] [place] [address]- 2546 Feb, [facility] [place] [facility] [address] [facility] [id number] [place] [address]- 2546 Feb, [facility] [address] [facility] [id number] [place] [id number] Feb, [facility] [address] [facility] [id number] [place] [id number] Feb, [facility] [address] [facility] [id number] [place] [address]- [address] Feb, [facility] [address] [facility] [id number], [place] [id number] Jan, [facility] [address] [facility] [id number], [place] [address] Jan, IMMUNIZATIONS No Known Immunizations SOCIAL HISTORY Never Assessed REASON FOR VISIT Diabetic Lupis Macias MA PLAN OF CARE Activity Details Follow Up keep appts as previously instructed by primary provider Reason: VITAL SIGNS Height 70.5 in 2016-12-09 Weight 226 lbs 2016-12-09 Temperature 97 degrees Fahrenheit 2016-12-09 Heart Rate 82 bpm 2016-12-09 Respiratory Rate 20 2016-12-09 BMI 31.97 kg/m2 2016-12-09 Blood pressure systolic 114 mmHg 2016-12-09 Blood pressure diastolic 70 mmHg 2016-12-09 MEDICATIONS Medication Instructions Dosage Frequency Start Date End Date Duration Status Flomax 0.4 mg take 1 capsule (0.4 mg) by oral route once daily 1/2 hour following the same meal each day Feb, Active Lipitor 40 mg Orally Once a day 1 tablet 24h 0 days Active Aspirin 325 MG Orally Once a day 1 tablet 24h Active TRUEtest Test - as directed Aug, Active Metformin HCl 500 MG Orally twice a day 2 tab am 1.5 tab pm 12h Aug, Active Lisinopril 10 mg Orally Once a day 1 tablet 24h Feb, Active RESULTS No Results PROCEDURES Procedure Date Ordered Result Body Site [facility] VISIT ESTABLISHED PATIENT Dec 09, 2016 INSTRUCTIONS MEDICATIONS ADMINISTERED No Known Medications MEDICAL [...]
--- OUTSIDE RECORDS SUMMARY | 2018-04-02 12:50 | XMS REPORT ---
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
--- OUTSIDE RECORDS SUMMARY | 2018-04-02 12:50 | XMS REPORT ---
Author Author SHAGGY BEY [facility] [employer] Address Unknown Phone Unavailable Care Team Providers Care Rn Pacu Name Role Phone SHAGGY BEY CP Unavailable Allergies, Adverse Reactions, Alerts Substance Reaction Event Type N.K.D.A. Info Not Available Non Drug Allergy Problems Problem Type Condition Code Onset Dates Condition Status Problem Prostate cancer C61 Active Problem Insomnia, unspecified 780.52 Active Problem Type II or unspecified type diabetes mellitus without mention of complication, not stated as uncontrolled E11.9 Active Assessment Type II or unspecified type diabetes mellitus without mention of complication, not stated as uncontrolled E11.9 Active Assessment Encounter for immunization Z23 Active Medications Medication Code System Code Instructions Start Date End Date Status Dosage Metformin HCl [facility] [address]-24 500 MG Orally twice a day August 19, 2014 2 tab am 1 tab pm Aspirin [facility] [address]-90 325 MG Orally Once a day 1 tablet Lisinopril [facility] [address]-92 10 mg Orally Once a day Feb 25, 2015 1 tablet Lipitor [facility] 90733941666 40 MG Orally Once a day 1 tablet Flomax [facility] [address]-18 0.4 mg Feb 20, 2013 take 1 capsule (0.4 mg) by oral route once daily 1/2 hour following the same meal each day Procedures Procedure Coding System Code Date [facility] VISIT ESTABLISHED PATIENT CPT-4 G0467 Dec 30, 2015 Office Visit, Est Pt., Level 3 CPT-4 68795 Dec 30, 2015 GLYCATED HEMOGLOBIN TEST CPT-4 22490 Dec 30, 2015 SINGLE IMMUNIZATION ADMIN CPT-4 82632 Dec 30, 2015 FLUARIX QUAD P-FREE 3 AND UP .50 2015 CPT-4 38926 Dec 30, 2015 Vital Signs Date/Time: Dec 30, 2015 Cardiac Monitoring Heart Rate 75 bpm Weight 241.6 lbs Height 70.5 in BMI 34.17 Index Blood Pressure Diastolic 72 mmHg Blood Pressure Systolic 132 mmHg Results Name Result Date Reference Range Unit Abnormality Flag A1C (IN HOUSE) ----A1C IN HOUSE 6.4 [id number] 4.3 - 5.6 % ----Previous A1c 6.4 20151230 ----Lot [id number] ----Exp date 20151230 Immunizations Vaccine Administration Date FLUARIX QUAD P-FREE 3 AND UP .50 2015Dec 30, 2015 Summary Purpose [employer]ClinicalWorks Submission
--- OUTSIDE RECORDS SUMMARY | 2018-04-02 12:50 | XMS REPORT ---
Author Author SHAGGY BEY [facility] e[employer] Address Unknown Phone Unavailable Care Team Providers Care Chopped Strand Operator Name Role Phone SHAGGY BEY CP Unavailable [...] not stated as uncontrolled E11.9 Active Assessment Prostate cancer C61 Active Medications Medication Code System Code Instructions Start Date End Date Status Dosage Lipitor [facility] [address]-46 40 MG Orally Once a day August 19, 2014 1 tablet Metformin HCl [facility] [address]-57 500 MG Orally twice a day 1 am 1.5 pm August 19, 2014 1-1.5 tablet with meals Aspirin [facility] [address]-44 325 MG Orally Once a day 1 tablet Flomax [facility] [address]-10 0.4 mg Feb 20, 2013 take 1 capsule (0.4 mg) by oral route once daily 1/2 hour following the same meal each day Lisinopril [facility] [address]-98 10 MG Orally Once a day Feb 25, 2015 1 tablet Procedures Procedure Coding System Code Date Office Visit, Est Pt., Level 3 CPT-4 19530 Feb 25, 2015 GLYCATED HEMOGLOBIN TEST CPT-4 00114 Feb 25, 2015 [facility] VISIT ESTABLISHED PATIENT CPT-4 G0467 Feb 25, 2015 Vital Signs Date/Time: Feb 25, 2015 Temperature 97 F Weight 242.1 lbs Height 70.5 in BMI 34.24 Index Blood Pressure Diastolic 74 mmHg Blood Pressure Systolic 140 mmHg Cardiac Monitoring Heart Rate 68 bpm Results Name Result Date Reference Range Unit Abnormality Flag A1C (IN HOUSE) ----A1C IN HOUSE 6.6 [id number] 4.30 - 5.6 % ----Previous A1c 6.7 [id number] ----Lot # [id number] ----Exp date [id number] Summary Purpose [employer]ClinicalWorks Submission
--- OUTSIDE RECORDS SUMMARY | 2018-04-02 12:50 | XMS REPORT ---
Author Author SHAGGY BEY [facility] Address [address] [place] [address] Care Team Providers Care Working Second Hand Name Role Phone BEY SHAGGY Unavailable PROBLEMS Type Condition ICD9-CM Code FEE82-IJ Code Onset Dates Condition Status SNOMED Code Problem Prostate cancer C61 Active 167016582 Problem Comprehensive diabetic foot examination, type 2 DM, encounter for E11.9 Active 68757675 Problem Type II or unspecified type diabetes mellitus without mention of complication, not stated as uncontrolled E11.9 Active 69968109 Problem Insomnia, unspecified 780.52 Active 078634803 Problem Essential (primary) hypertension I10 Active 34716334 Problem Other obesity due to excess calories E66.09 Active 292913342 Problem Hammertoe of right foot M20.41 Active 940839577 Problem Body mass index (BMI) of 33.0-33.9 in adult Z68.33 Active 551792228 Problem Diabetic polyneuropathy associated with type 2 diabetes mellitus E11.42 Active 60398407 Problem Type 2 diabetes mellitus with complication, without long-term current use of insulin E11.8 Active 14169678 ALLERGIES No Known Allergies ENCOUNTERS Encounter Location Date Diagnosis [id number] [place] [id number] Jun, Encounter for diabetic foot exam E11.9 ; Type 2 diabetes mellitus with complication, without long-term current use of insulin E11.8 ; Diabetic polyneuropathy associated with type 2 diabetes mellitus E11.42 ; Hammertoe of right foot M20.41 ; Essential (primary) hypertension I10 ; Other obesity due to excess calories E66.09 and Body mass index (BMI) of 33.0-33.9 in adult Z68.[address] [id number] [place] [id number] May, Type II or unspecified type diabetes mellitus without mention of complication, not stated as uncontrolled E11.9 and Prostate cancer C61 [address] [id number] [place] [id number] Feb, Type II or unspecified type diabetes mellitus without mention of complication, not stated as uncontrolled E11.9 [facility] JAY[facility] [address] [id number] [place] [id number] Feb, Type II or unspecified type diabetes mellitus without mention of complication, not stated as uncontrolled E11.9 [facility] JAYESH [address] [place] [id number] [place] [id number] Dec, Comprehensive diabetic foot examination, type 2 DM, encounter for E11.9 [facility] JAYESH [address] [id number] [place] [id number] Nov, Type II or unspecified type diabetes mellitus without mention of complication, not stated as uncontrolled E11.9 [facility] JAYESH [id number] [place] [address], [place] [id number] Nov, Type II or unspecified type diabetes mellitus without mention of complication, not stated as uncontrolled E11.9 and Plantar callus L84 [facility] OLM[facility] [id number] [place] [id number] Oct, Medicare welcome exam Z00.00 and Encounter for immunization Z23 [facility] [address] [id number] [place] [id number] July, [facility] JAYESH [id number] [place] [address], [place] [id number] July, Type II or unspecified type diabetes mellitus without mention of complication, not stated as uncontrolled E11.9 [facility] JAY[facility] [id number] [place] [id number] Mar, Type II or unspecified type diabetes mellitus without mention of complication, not stated as uncontrolled E11.9 [facility] JAYESH [address] [id number] [place] [id number] Feb, [facility] JAY[facility] [address] [id number] [place] [id number] Feb, [facility] JAYESH [address] [id number] [place] [id number] Dec, Type II or unspecified type diabetes mellitus without mention of complication, not stated as uncontrolled E11.9 and Encounter for immunization Z23 [facility] JAYESH [id number] [place] [id number] Aug, Type II or unspecified type diabetes mellitus without mention of complication, not stated as uncontrolled E11.9 [facility] J[facility] [id number] [place] [id number] May, Type II or unspecified type diabetes mellitus without mention of complication, not stated as uncontrolled E11.9 [facility] [place] [address] [id number] [place] [id number] Feb, Type II or unspecified type diabetes mellitus without mention of complication, not stated as uncontrolled E11.9 and Prostate cancer C61 [facility] TIJERINA [address] [facility] [address] [id number] [id number] Jan, [facility] T[facility] [address] [facility] [id number] [place] [id number] Dec, [facility] [id number] [place] [id number] Nov, Diabetes mellitus without mention of complication, type II or unspecified type, not stated as uncontrolled 250.00 [facility] [id number] [place] [id number] Sep, [facility] [address] [address] [id number] [place] [id number] Aug, Diabetes mellitus without mention of complication, type II or unspecified type, not stated as uncontrolled 250.00 and Neoplasm of unspecified nature of other genitourinary organs 239.5 [facility] [id number] [place] [address] Jun, [facility] [id number] [place] [address] Jun, [place] [id number] [place] [id number] Feb, [facility] [id number] [place] [address] Feb, [id number] [place] [phone] Feb, [facility] [address] [facility] [id number], [place] [address] Feb, [facility] JAYESH [address] [id number] [place] [phone] Dec, [facility] [address] [facility] [id number], [place] [address] Dec, [facility]AYESH [address] [facility] [id number] [place] [id number] Sep, [facility] [address] [facility] [id number], [place] [address] Sep, [facility] [address] [facility] [id number] [place] [phone] May, [facility] [address] [facility] [id number], [place] [address] May, [facility] [address] [id number], [place] [address] May, [facility] [address] [facility] [id number], [place] [address] May, [facility] [address] [id number], [place] [address] Apr, [facility] [address] [facility] [id number], [place] [address] Apr, [facility] [address] [facility] [id number], [place] [address] Mar, [facility] [address] [facility] [id number], [place] [address] Mar, [facility]ESH [address] [facility] [id number] [place] [id number] Feb, [facility] [address] [facility] [id number], [place] [address] Feb, [facility] [address] [facility] [id number], [place] [address] Feb, [facility]ESH [address] [facility] [id number] [place] [id number] Feb, [facility] [address] [facility] [id number] [place] [phone] Feb, [facility] [address] [facility] [id number] [place] [address] Feb, [facility] [address] [facility] [id number] [place] [phone] Jan, [facility] [address] [facility] [id number], [place] [address] Jan, IMMUNIZATIONS No Known Immunizations SOCIAL HISTORY Never Assessed REASON FOR VISIT 4 mo DM f/u--APRMINDER Hernandez PLAN OF CARE Activity Details Follow Up 3 Months Reason:dm VITAL SIGNS Height 70.5 in 2016-11-09 Weight 227.8 lbs 2016-11-09 Temperature 96.9 degrees Fahrenheit 2016-11-09 Heart Rate 92 bpm 2016-11-09 Respiratory Rate 24 2016-11-09 BMI 32.22 kg/m2 2016-11-09 Blood pressure systolic 114 mmHg 2016-11-09 Blood pressure diastolic 70 mmHg 2016-11-09 MEDICATIONS Medication Instructions Dosage Frequency Start Date End Date Duration Status TRUEtest Test - as directed Aug, Active Lipitor 40 MG Orally Once a day 1 tablet 24h Active Aspirin 325 MG Orally Once a day 1 tablet 24h Active Metformin HCl 500 MG Orally twice a day 2 tab am 1.5 tab pm 12h Aug, Active Lisinopril 10 mg Orally Once a day 1 tablet 24h Feb, Active Flomax 0.4 mg take 1 capsule (0.4 mg) by oral route once daily 1/2 hour following the same meal each day Feb, Active RESULTS Name Result Date Reference Range A1C (IN HOUSE) 2016-11-09 A1C IN HOUSE 6.3 4.3 - 5.6 % Previous A1c 6.9 Lot [id number] Exp date 07/23 PROCEDURES Procedure Date Ordered Result Body Site GLYCATED HEMOGLOBIN TEST Nov 09, 2016 [facility] VISIT ESTABLISHED PATIENT Nov 09, 2016 INSTRUCTIONS MEDICATIONS ADMINISTERED No Known [...]
--- OUTSIDE RECORDS SUMMARY | 2018-04-02 12:50 | XMS REPORT ---
Author Author SHAGGY BEY [facility] Address [address] [place] [address] Care Team Providers Care Director Surgical Name Role Phone BEYSHAGGY COLVIN Unavailable PROBLEMS Type Condition ICD9-CM Code DYA01-US Code Onset Dates Condition Status SNOMED Code Problem Prostate cancer C61 Active 995407852 Problem Type II or unspecified type diabetes mellitus without mention of complication, not stated as uncontrolled E11.9 Active 92765617 Problem Insomnia, unspecified 780.52 Active 393606714 ALLERGIES No Known Allergies SOCIAL HISTORY Never Assessed PLAN OF CARE Activity Details Follow Up 3 Months Reason:dm VITAL SIGNS Height 70.5 in 2016-04-01 Weight 242.2 lbs 2016-04-01 Temperature 98.6 degrees Fahrenheit 2016-04-01 Heart Rate 80 bpm 2016-04-01 Respiratory Rate 16 2016-04-01 BMI 34.26 kg/m2 2016-04-01 Blood pressure systolic 120 mmHg 2016-04-01 Blood pressure diastolic 72 mmHg 2016-04-01 MEDICATIONS Medication Instructions Dosage Frequency Start Date End Date Duration Status Lisinopril 10 mg Orally Once a day 1 tablet 24h Feb, Active Aspirin 325 MG Orally Once a day 1 tablet 24h Active Lipitor 40 MG Orally Once a day 1 tablet 24h Active Metformin HCl 500 MG Orally twice a day 2 tab am 1.5 tab pm 12h Aug, Active Flomax 0.4 mg take 1 capsule (0.4 mg) by oral route once daily 1/2 hour following the same meal each day Feb, Active RESULTS Name Result Date Reference Range A1C (IN HOUSE) 2016-04-01 A1C IN HOUSE 6.9 4.3 - 5.6 % Previous A1c 6.4 Lot [id number] Exp date 12/22 PROCEDURES Procedure Date Ordered Result Body Site [facility] VISIT ESTABLISHED PATIENT Apr 01, 2016 GLYCATED HEMOGLOBIN TEST Apr 01, 2016 IMMUNIZATIONS No Known Immunizations MEDICAL (GENERAL) HISTORY Type Description Date Medical History type II diabetes Medical History prostate cancer Surgical History cholecystectomy 2012 Surgical History prostate surgery, seeded prostate 2013 Surgical History left hip replacement x 3 2012 Surgical History left shoulder surgery 2014 Surgical History right ankle fused 2002 Surgical History lithotripsy 2002 Hospitalization History surgeries
--- OUTSIDE RECORDS SUMMARY | 2018-04-02 12:50 | XMS REPORT ---
Author Author [facility]AG[facility] BEY [facility] Address [address] [place] [address] Care Team Providers Care Public Health Microbiologist Name Role Phone SHAGGY BEY Unavailable PROBLEMS Type Condition ICD9-CM Code TOD44-OH Code Onset Dates Condition Status SNOMED Code Problem Comprehensive diabetic foot examination, type 2 DM, encounter for E11.9 Active 50905336 Problem Prostate cancer C61 Active 158671355 Problem Type II or unspecified type diabetes mellitus without mention of complication, not stated as uncontrolled E11.9 Active 11179521 Problem Insomnia, unspecified 780.52 Active 785267999 ALLERGIES No Known Allergies SOCIAL HISTORY Never Assessed PLAN OF CARE Activity Details Follow Up 3 Months Reason:dm VITAL SIGNS Height 70.5 in 2016-07-07 Weight 242.2 lbs 2016-07-07 Temperature 98.3 degrees Fahrenheit 2016-07-07 Heart Rate 48 bpm 2016-07-07 Respiratory Rate 16 2016-07-07 BMI 34.26 kg/m2 2016-07-07 Blood pressure systolic 144 mmHg 2016-07-07 Blood pressure diastolic 82 mmHg 2016-07-07 MEDICATIONS Medication Instructions Dosage Frequency Start Date End Date Duration Status Flomax 0.4 mg take 1 capsule (0.4 mg) by oral route once daily 1/2 hour following the same meal each day Feb, Active Aspirin 325 MG Orally Once a day 1 tablet 24h Active Lipitor 40 MG Orally Once a day 1 tablet 24h Active Metformin HCl 500 MG Orally twice a day 2 tab am 1.5 tab pm 12h Aug, Active Lisinopril 10 mg Orally Once a day 1 tablet 24h Feb, Active RESULTS Name Result Date Reference Range TSH 2016-07-07 TSH 2.900 0.450-4.500 CBC 2016-07-07 WBC 5.6 3.4-10.8 RBC 4.11 4.14-5.80 Hemoglobin 11.9 12.6-17.7 Hematocrit 36.6 37.5-51.0 MCV 89 79-97 MCH 29.0 26.6-33.0 MCHC 32.5 31.5-35.7 RDW 15.4 12.3-15.4 Platelets 197 150-379 Neutrophils 62 Lymphs 25 Monocytes 10 Eos 2 Basos 1 Immature Cells Neutrophils (Absolute) 3.4 1.4-7.0 Lymphs (Absolute) 1.4 0.7-3.1 Monocytes(Absolute) 0.6 0.1-0.9 Eos (Absolute) 0.1 0.0-0.4 Baso (Absolute) 0.0 0.0-0.2 Immature Granulocytes 0 Immature Grans (Abs) 0.0 0.0-0.1 [facility] Hematology Comments: LIPID PANEL 2016-07-07 Cholesterol, Total 131 100-199 Triglycerides 144 0-149 HDL Cholesterol 35 >39 VLDL Cholesterol Ponce 29 5-40 LDL Cholesterol Calc 67 0-99 Comment: CMP 2016-07-07 Glucose, Serum 107 65-99 BUN 12 8-27 Creatinine, Serum 1.10 0.76-1.27 eGFR If NonAfricn Am 64 >59 eGFR If Africn Am 74 >59 BUN/Creatinine Ratio 11 10-24 Sodium, Serum 142 134-144 Potassium, Serum 3.9 3.5-5.2 Chloride, Serum 105 96-106 Carbon Dioxide, Total 22 18-29 Calcium, Serum 9.2 8.6-10.2 Protein, Total, Serum 7.3 6.0-8.5 Albumin, Serum 3.9 3.5-4.8 Globulin, Total 3.4 1.5-4.5 A/G Ratio 1.1 1.2-2.2 Bilirubin, Total 0.6 0.0-1.2 Alkaline Phosphatase, S 50 39-117 AST (SGOT) 14 0-40 ALT (SGPT) 11 0-44 A1C (IN HOUSE) 2016-07-07 A1C IN HOUSE 6.9 4.3 - 5.6 % Previous A1c 6.9 Lot [id number] Exp date 03/25 PROCEDURES Procedure Date Ordered Result Body Site [facility] VISIT ESTABLISHED PATIENT July 07, 2016 GLYCATED HEMOGLOBIN TEST July 07, 2016 LAB NOT BILLED BY [facility] July 07, 2016 VENIPUNCT, ROUTINE* July 07, 2016 IMMUNIZATIONS No Known Immunizations MEDICAL (GENERAL) HISTORY Type Description Date Medical History type II diabetes Medical History prostate cancer Surgical History cholecystectomy 2013 Surgical History prostate surgery, seeded prostate 2013 Surgical History left hip replacement x 3 2012 Surgical History left shoulder surgery 2014 Surgical History right ankle fused 2002 Surgical History lithotripsy 2002 Hospitalization History surgeries
--- OUTSIDE RECORDS SUMMARY | 2018-04-02 12:50 | XMS REPORT ---
Author Author SHAGGY BEY [facility] Address [address] [place] [address] Care Team Providers Care Band Attacher Name Role Phone SHAGGY BEY Unavailable PROBLEMS Type Condition ICD9-CM Code BCF67-BN Code Onset Dates Condition Status SNOMED Code Problem Type II or unspecified type diabetes mellitus without mention of complication, not stated as uncontrolled E11.9 Active 02708173 Problem Prostate cancer C61 Active 194917899 Problem Insomnia, unspecified 780.52 Active 975689291 ALLERGIES Unknown Allergies SOCIAL HISTORY No smoking Hx information available PLAN OF CARE VITAL SIGNS MEDICATIONS Medication Instructions Dosage Frequency Start Date End Date Duration Status Valtrex 1 GM Orally 3 times a day 1 tablet 8h Feb, Feb, 07 days Active RESULTS No Results PROCEDURES No Known procedures IMMUNIZATIONS No Known Immunizations
--- OUTSIDE RECORDS SUMMARY | 2018-04-02 12:50 | XMS REPORT ---
Author Author SHAGGY BEY Organization [employer] Address Unknown Phone Unavailable Care Team Providers Care Sports Journalist Name Role Phone SHAGGY BEY CP Unavailable Allergies, Adverse Reactions, Alerts Substance Reaction Event Type N.K.D.A. 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 239.5 Active Problem Insomnia, unspecified 780.52 Active Medications Medication Code System Code Instructions Start Date End Date Status Dosage Metformin HCl [facility] [address]-68 500 MG Orally twice a day 1 am 1.5 pm August 19, 2014 1-1.5 tablet with meals Lipitor [facility] [address]-55 40 MG Orally Once a day August 19, 2014 1 tablet Flomax [facility] [address]-67 0.4 mg Feb 20, 2013 take 1 capsule (0.4 mg) by oral route once daily 1/2 hour following the same meal each day Aspirin [facility] [address]-17 325 MG Orally Once a day 1 tablet Procedures Procedure Coding System Code Date COMPLETE CBC W/AUTO DIFF WBC CPT-4 57444 Nov 20, 2014 LIPID PANEL CPT-4 60911 Nov 20, 2014 Office Visit, Est Pt., Level 3 CPT-4 01898 Nov 20, 2014 VENIPUNCT, ROUTINE* CPT-4 05762 Nov 20, 2014 COMPREHEN METABOLIC PANEL CPT-4 05144 Nov 20, 2014 GLYCATED HEMOGLOBIN TEST CPT-4 43614 Nov 20, 2014 Vital Signs Date/Time: Nov 20, 2014 Temperature 89.2 F Weight 241.8 lbs Height 70.5 in BMI 34.20 Index Blood Pressure Diastolic 76 mmHg Blood Pressure Systolic 120 mmHg Cardiac Monitoring Heart Rate 64 bpm Results Name Result Date Reference Range Unit Abnormality Flag CBC Summary Purpose [employer] Submission
--- OUTSIDE RECORDS SUMMARY | 2018-04-02 12:51 | XMS REPORT ---
Author Author SHAGGY BEY [facility] Address [address] [place] [address] Care Team Providers Care Salesforce Developer Name Role Phone SHAGGY BEY Unavailable PROBLEMS Type Condition ICD9-CM Code KOI53-DC Code Onset Dates Condition Status SNOMED Code Problem Comprehensive diabetic foot examination, type 2 DM, encounter for E11.9 Active 89171590 Problem Prostate cancer C61 Active 250830382 Problem Type II or unspecified type diabetes mellitus without mention of complication, not stated as uncontrolled E11.9 Active 15704436 Problem Insomnia, unspecified 780.52 Active 314996550 ALLERGIES No Information SOCIAL HISTORY Never Assessed PLAN OF CARE VITAL SIGNS MEDICATIONS Medication Instructions Dosage Frequency Start Date End Date Duration Status TRUEtest Test - as directed Aug, Active RESULTS No Results PROCEDURES No Known procedures IMMUNIZATIONS No Known Immunizations MEDICAL (GENERAL) HISTORY [...]
--- OUTSIDE RECORDS SUMMARY | 2018-04-02 12:51 | XMS REPORT | Continuity of Care Document ---
Author Author [facility] Address Unknown Phone Unavailable Allergies Active Description Code Type Severity Reaction Onset Reported/Identified Relationship to Patient Clinical Status Yes No Known Drug Allergies [id number] Drug Allergy Unknown N/A 10/05/2012 Medications There is no data. Problems Date Dx Coded Attending Type Code Diagnosis Diagnosed By 10/10/2012 DORITA ABDULLAHI MD Ot 250.00 DIAB MARLEEN WO COMPL, TYPE II OR UNSPEC TY 10/10/2012 DORITA ABDULLAHI MD Ot 592.1 CALCULUS OF URETER 10/10/2012 DORITA ABDULLAHI MD Ot 594.1 BLADDER CALCULUS NEC 10/10/2012 DORITA ABDULLAHI MD Ot 600.00 HYPERTROPHY (BENIGN) OF PROSTATE W/O URI 12/29/2012 DORITA ABDULLAHI MD Ot 185 MALIGN NEOPL PROSTATE 12/29/2012 DORITA ABDULLAHI MD Ot 250.00 DIAB MARLEEN WO COMPL, TYPE II OR UNSPEC TY 01/15/2013 ALTON TIDWELL DO V04.81 FLU SHOT 01/15/2013 ALTON TIDWELL DO V04.81 FLU SHOT 01/15/2013 ALTON TIDWELL DO V04.81 FLU SHOT 01/15/2013 SHAGGY BEY APRN V04.81 FLU SHOT 01/15/2013 ALTON TIDWELL DO V04.81 FLU SHOT 01/15/2013 ALTON TIDWELL DO V04.81 FLU SHOT 01/15/2013 SHAGGY BEY APRN V04.81 FLU SHOT 01/15/2013 SHAGGY BEY APRN V04.81 FLU SHOT 02/08/2013 BETTY ALVAREZ MD Ot 185 MALIGN NEOPL PROSTATE 02/08/2013 BETTY ALVAREZ MD Ot V58.0 ENCOUNTER FOR RADIOTHERAPY 02/20/2013 ALTON TIDWELL DO 239.5 PROSTATE NEOPLASM 02/20/2013 ALTON TIDWELL DO 250.00 DIABETES II CONTROLLED (UNCOMPLICATED) 02/20/2013 DIANN LEMUSKORYA K 239.5 PROSTATE NEOPLASM 02/20/2013 DIANN LEMUS, ALTON K 250.00 DIABETES II CONTROLLED (UNCOMPLICATED) 02/20/2013 BEY COLUMNIST/COMMENTATOR, SHAGGY R 239.5 PROSTATE NEOPLASM 02/20/2013 BEY COLUMNIST/COMMENTATOR, SHAGGY R 250.00 DIABETES II CONTROLLED (UNCOMPLICATED) 02/20/2013 DIANN LEMUS ALTON K 239.5 PROSTATE NEOPLASM 02/20/2013 DIANN LEMUS, ALTON K 250.00 DIABETES II CONTROLLED (UNCOMPLICATED) 02/20/2013 TIDWELL DO, ALTON K 239.5 PROSTATE NEOPLASM 02/20/2013 TIDWELL DO, ALTON K 250.00 DIABETES II CONTROLLED (UNCOMPLICATED) 02/20/2013 BEY COLUMNIST/COMMENTATOR, SHAGGY R 239.5 PROSTATE NEOPLASM 02/20/2013 BEY COLUMNIST/COMMENTATOR, SHAGGY R 250.00 DIABETES II CONTROLLED (UNCOMPLICATED) 02/20/2013 BEY COLUMNIST/COMMENTATORSHAGGY Mcdonnell R 239.5 PROSTATE NEOPLASM 02/20/2013 BEY COLUMNIST/COMMENTATORSHAGGY Mcdonnell R 250.00 DIABETES II CONTROLLED (UNCOMPLICATED) 03/06/2013 ALTON TIDWELL DO K 780.52 INSOMNIA UNSPECIFIED 03/06/2013 BEY COLUMNIST/COMMENTATORSHAGGY Mcdonnell R 780.52 INSOMNIA UNSPECIFIED 03/06/2013 DIANN KORY LEMUSA K 780.52 INSOMNIA UNSPECIFIED 03/06/2013 DIANN ALTON LEMUS K 780.52 INSOMNIA UNSPECIFIED 03/06/2013 BEY COLUMNIST/COMMENTATORSHAGGY Mcdonnell R 780.52 INSOMNIA UNSPECIFIED 03/06/2013 BEY COLUMNIST/COMMENTATORSHAGGY Mcdonnell R 780.52 INSOMNIA UNSPECIFIED 02/19/2014 SOTERO BLAKELYSHAGGY Mcdonnell R 465.9 UPPER RESPIRATORY INFECTION 03/19/2014 BRADLY CRAIG, DORITA Rudolph Ot 592.0 03/19/2014 BRADLY CRAIG, DORITA Rudolph Ot 592.0 03/19/2014 BRADLY CRAIG, DORITA Rudolph Ot 594.1 03/19/2014 BRADLY CRAIG, DORITA Rudolph Ot 793.11 03/19/2014 BRADLY CRAIG, DORITA Rudolph Ot 592.0 03/19/2014 BRADLY CRAIG, DORITA Rudolph Ot 592.1 03/19/2014 BRADLY CRAIG, DORITA Rudolph Ot 594.1 03/19/2014 BRADLY CRAIG, DORITA Rudolph Ot 602.9 03/19/2014 BRADLY CRAIG, DORITA A Ot V72.83 03/19/2014 BRADLY CRAIG, DORITA A Ot V74.8 03/19/2014 BRADLY CRAIG, DORITA A Ot 185 03/19/2014 BRADLY CRAIG, DORITA A Ot 562.10 03/19/2014 BRADLY CRAIG, DORITA A Ot 591 03/19/2014 BRADLY CRAIG, DORITA A Ot 185 03/19/2014 BRADLY CRAIG, DORITA A Ot V72.84 03/19/2014 BRADLY CRAIG, DORITA A Ot V74.8 03/19/2014 ANTONIO CRAIG, BETTY E Ot 185 03/19/2014 BRADLY CRAIG, DORITA A Ot 793.11 04/17/2014 BRADLY CRAIG, DORITA A Ot 793.11 04/22/2014 BRADLY CRAIG, DORITA A Ot 793.11 03/14/2015 BRADLY CRAIG, DORITA A Ot 592.0 03/14/2015 BRADLY CRAIG, DORITA A Ot 592.0 03/14/2015 BRADLY CRAIG, DORITA A Ot 594.1 03/14/2015 BRADLY CRAIG, DORITA A Ot 793.11 03/14/2015 BRADLY CRAIG, DORITA A Ot 592.0 03/14/2015 BRADLY CRAIG, DORITA A Ot 592.1 03/14/2015 BRADLY CRAIG, DORITA A Ot 594.1 03/14/2015 BRADLY CRAIG, DORITA A Ot 602.9 03/14/2015 BRADLY CRAIG, DORITA A Ot V72.83 03/14/2015 BRADLY CRAIG, DORITA A Ot V74.8 03/14/2015 BRADLY CRAIG, DORITA A Ot 185 03/14/2015 BRADLY CRIAG, DORITA A Ot 562.10 03/14/2015 BRADLY CRAIG, DORITA A Ot 591 03/14/2015 BRADLY CRAIG, DORITA A Ot 185 03/14/2015 BRADLY CRAIG, DORITA A Ot V72.84 03/14/2015 BRADLY CRAIG, DORITA A Ot V74.8 03/14/2015 ANTONIO CRAIG, BETTY E Ot 185 03/14/2015 BRADLY CRAIG, DORITA Rudolph Ot 793.11 03/14/2015 BRADLY CRAIG, DORITA Rudolph Ot 793.11 02/05/2016 BRADLY CRAIG, DORITA Rudolph Ot 592.0 CALCULUS OF KIDNEY 02/05/2016 BRADLY CRAIG, DORITA Rudolph Ot 594.1 BLADDER CALCULUS NEC 02/05/2016 BRADLY CRAIG, DORITA Rudolph Ot 793.11 SOLITARY PULMONARY NODULE 05/05/2016 BRADLY CRAIG, DORITA Rudolph Ot 592.0 CALCULUS OF KIDNEY 05/05/2016 BRADLY CRAIG, DORITA Rudolph Ot 594.1 BLADDER CALCULUS NEC 05/05/2016 BRADLY CRAIG, DORITA Rudolph Ot 793.11 SOLITARY PULMONARY NODULE 07/05/2016 BRADLY CRAIG, DORITA Rudolph Ot 592.0 CALCULUS OF KIDNEY 07/05/2016 BRADLY CRAIG, DORITA Rudolph Ot 594.1 BLADDER CALCULUS NEC 07/05/2016 BRADLY CRAIG, DORITA Rudolph Ot 793.11 SOLITARY PULMONARY NODULE 03/29/2018 DORITA ABDULLAHI MD Ot 185 MALIGN NEOPL PROSTATE 03/29/2018 DORITA ABDULLAHI MD Ot 562.10 DIVERTICULOSIS COLON (W/O MENT OF HEMORR 03/29/2018 DORITA ABDULLAHI MD Ot 591 HYDRONEPHROSIS 03/29/2018 DORITA ABDULLAHI MD Ot 185 MALIGN NEOPL PROSTATE 03/29/2018 DORITA ABDULLAHI MD, Ot V72.84 EXAM PRE-OPERATIVE NOS 03/29/2018 BRADLY CRAIG, DORITA Rudolph Ot V74.8 SCREEN-BACTERIAL DIS NEC 03/29/2018 ANTONIO CRAIG, BETTY Alarcon Ot 185 MALIGN NEOPL PROSTATE 03/29/2018 DORITA ABDULLAHI MD, Ot 793.11 SOLITARY PULMONARY NODULE 03/29/2018 DORITA ABDULLAHI MD, Ot 793.11 SOLITARY PULMONARY NODULE 03/29/2018 DORITA ABDULLAHI MD, Ot R91.1 SOLITARY PULMONARY NODULE 03/30/2018 DORITA ABDULLAHI MD Ot 185 MALIGN NEOPL PROSTATE 03/30/2018 DORITA ABDULLAHI MD, Ot 562.10 DIVERTICULOSIS COLON (W/O MENT OF HEMORR 03/30/2018 DORITA ABDULLAHI MD Ot 591 HYDRONEPHROSIS 03/30/2018 BRADLY CRAIG, DORITA Rudolph Ot 185 MALIGN NEOPL PROSTATE 03/30/2018 BRADLY CRAIG, DORITA Rudolph Ot V72.84 EXAM PRE-OPERATIVE NOS 03/30/2018 BRADLY CRAIG, DORITA Rudolph Ot V74.8 SCREEN-BACTERIAL DIS NEC 03/30/2018 ANTONIO CRAIG, BETTY Alarcon Ot 185 MALIGN NEOPL PROSTATE 03/30/2018 DORITA ABDULLAHI MD Ot 793.11 SOLITARY PULMONARY NODULE 03/30/2018 BRADLY CRAIG, DORITA Rudolph Ot 793.11 SOLITARY PULMONARY NODULE 03/30/2018 DORITA ABDULLAHI MD Ot R91.1 SOLITARY PULMONARY NODULE 03/30/2018 BRADLY CRAIG, DORITA Rudolph Ot K57.30 DVRTCLOS OF LG INT W/O PERFORATION OR AB 03/30/2018 DORITA ABDULLAHI MD Ot N20.0 CALCULUS OF KIDNEY 03/30/2018 DORITA ABDULLAHI MD, Ot N32.89 OTHER SPECIFIED DISORDERS OF BLADDER 03/30/2018 BRADLY CRAIG, DORITA Rudolph Ot Z90.49 ACQUIRED ABSENCE OF OTHER SPECIFIED PART Procedures Code Description [place] [address] A1C (IN-HOUSE) 02/20/2013 75445 ROUTINE VENIPUNCTURE 02/21/2013 36179 MICRO ALBUMIN-IN HOUSE 02/21/2013 43879 CBC 02/21/2013 6313743 GFR CALC (RESULT ONLY) 02/21/2013 90306 CMP 02/21/2013 79033 LIPID PANEL 02/21/2013 65393 TSH 02/21/2013 39994 A1C (IN-HOUSE) 05/30/2013 34472 A1C (IN-HOUSE) 09/12/2013 Results Test Result Range CBC - 01/03/18 11:20 WHITE BLOOD CELL COUNT 6.8 Thousand/uL 3.8-10.8 RED BLOOD CELL COUNT 4.27 Million/uL 4.20-5.80 HEMOGLOBIN 12.6 g/dL 13.2-17.1 HEMATOCRIT 38.0 % 38.5-50.0 MCV 89.0 fL 80.0-100.0 MCH 29.5 pg 27.0-33.0 MCHC 33.2 g/dL 32.0-36.0 RDW 14.0 % 11.0-15.0 PLATELET COUNT 194 Thousand/uL 140-400 MPV 10.4 fL 7.5-12.5 ABSOLUTE NEUTROPHILS 4699 cells/uL 9260-9903 ABSOLUTE LYMPHOCYTES 1421 cells/uL 850-3900 ABSOLUTE MONOCYTES 530 cells/uL 200-950 ABSOLUTE EOSINOPHILS 88 cells/uL 15-500 ABSOLUTE BASOPHILS 61 cells/uL 0-200 NEUTROPHILS 69.1 % NRG LYMPHOCYTES 20.9 % NRG MONOCYTES 7.8 % NRG EOSINOPHILS 1.3 % NRG BASOPHILS 0.9 % NRG Encounters ACCT No. Visit Date/Time Discharge Status Pt. Type Provider Facility Loc./Unit Complaint [id number] 02/19/2014 10:10:00 02/19/2014 23:59:59 CLS Outpatient SHAGGY BEY APRN [id number] 09/12/2013 09:47:00 09/12/2013 23:59:59 CLS Outpatient ALTON TIDWELL DO [id number] 09/12/2013 09:47:00 09/12/2013 23:59:59 CLS Outpatient SHAGGY BEY APRN [id number] 05/30/2013 13:10:00 05/30/2013 23:59:59 CLS Outpatient ALTON TIDWELL DO [id number] 03/06/2013 10:27:00 03/06/2013 23:59:59 CLS Outpatient ALTON TIDWELL DO [id number] 02/21/2013 08:19:00 02/21/2013 23:59:59 CLS Outpatient ALTON TIDWELL DO [id number] 02/20/2013 11:00:00 02/20/2013 23:59:59 CLS Outpatient SHAGGY BEY APRN [id number] 01/15/2013 16:07:00 01/15/2013 23:59:59 CLS Outpatient ALTON TIDWELL DO [id number] 03/20/2014 08:27:24 ACT Document Registration [id number] 09/28/2017 15:20:00 09/28/2017 23:59:59 CLS Outpatient SHAGGY BEY APRN [facility] [id number] 01/03/2018 10:40:00 Document Registration [id number] 03/30/2018 08:29:00 03/30/2018 23:59:59 CLS Outpatient BRADLY CRAIG, DORITA Yang [facility] RAD HEMATURIA,RENAL STONES [id number] 03/14/2015 09:07:00 03/14/2015 23:59:59 CLS Outpatient DORITA ABDULLAHI MD Via [facility] RAD PULMONARY NODULE [id number] 03/20/2014 08:26:00 03/20/2014 23:59:59 CLS Outpatient DORITA ABDULLAHI MD Via [facility] RAD RT PULMONARY NODULE [id number] 06/11/2013 08:48:00 06/11/2013 23:59:59 CLS Outpatient BETTY ALVAREZ MD Via [facility] ONC [id number] 03/21/2013 09:18:00 03/21/2013 23:59:59 CLS Outpatient DORITA ABDULLAHI MD Via [facility] RAD RT PULM NODULE [id number] 01/26/2013 08:16:00 02/08/2013 00:01:00 DIS Outpatient BETTY ALVAREZ MD [facility] ONC [id number] 12/29/2012 06:00:00 12/29/2012 11:20:00 DIS Outpatient DORITA ABDULLAHI MD Via [facility] PROSTATE CANCER [id number] 12/18/2012 08:32:00 12/18/2012 23:59:59 CLS Outpatient DORITA ABDULLAHI MD Via [facility] PREOP PROSTATE CANCER [id number] 10/20/2012 09:33:00 10/20/2012 23:59:59 CLS Outpatient DORITA ABDULLAHI MD Via [facility] RAD CA PROSTATE [id number] 10/10/2012 08:18:00 10/10/2012 15:48:00 DIS Outpatient DORITA ABDULLAHI MD [facility] RIGHT RENAL STONE; ABDORMAL PROSTATE [id number] 10/05/2012 09:16:00 10/05/2012 23:59:59 CLS Outpatient DORITA ABDULLAHI MD Via [facility] PREOP [id number] 09/28/2012 14:12:00 09/28/2012 23:59:59 CLS Outpatient DORITA ABDULLAHI MD [facility] RAD RIGHT URETERAL STONES, HEMATURIA [id number] 09/28/2012 12:01:00 09/28/2012 23:59:59 CLS Outpatient BRADLY CRAIG, DORITA Rudolph [facility] RAD
--- OUTSIDE RECORDS SUMMARY | 2018-04-02 12:51 | XMS REPORT ---
Author Author SHAGGY BEY [facility] Address [address] [place] [address] Care Team Providers Care User Interface Artist Name Role Phone BEY SHAGGY Unavailable PROBLEMS Type Condition ICD9-CM Code AHM11-GD Code Onset Dates Condition Status SNOMED Code Problem Prostate cancer C61 Active 041374524 Problem Comprehensive diabetic foot examination, type 2 DM, encounter for E11.9 Active 60074001 Problem Type II or unspecified type diabetes mellitus without mention of complication, not stated as uncontrolled E11.9 Active 41319364 Problem Insomnia, unspecified 780.52 Active 840773302 Problem Essential (primary) hypertension I10 Active 53072335 Problem Other obesity due to excess calories E66.09 Active 675321232 Problem Hammertoe of right foot M20.41 Active 863039967 Problem Body mass index (BMI) of 33.0-33.9 in adult Z68.33 Active 570191627 Problem Diabetic polyneuropathy associated with type 2 diabetes mellitus E11.42 Active 17046512 Problem Type 2 diabetes mellitus with complication, without long-term current use of insulin E11.8 Active 94815232 ALLERGIES No Known Allergies ENCOUNTERS Encounter Location Date Diagnosis [id number] [place] [id number] Jun, Encounter for diabetic foot exam E11.9 ; Type 2 diabetes mellitus with complication, without long-term current use of insulin E11.8 ; Diabetic polyneuropathy associated with type 2 diabetes mellitus E11.42 ; Hammertoe of right foot M20.41 ; Essential (primary) hypertension I10 ; Other obesity due to excess calories E66.09 and Body mass index (BMI) of 33.0-33.9 in adult Z68.[address] [id number] [place] [id number] May, Type II or unspecified type diabetes mellitus without mention of complication, not stated as uncontrolled E11.9 and Prostate cancer C61 [address] [id number] [place] [id number] Feb, Type II or unspecified type diabetes mellitus without mention of complication, not stated as uncontrolled E11.9 [facility] [address] [id number] [place] [id number] Feb, Type II or unspecified type diabetes mellitus without mention of complication, not stated as uncontrolled E11.9 [facility] [address] [place] [id number] [place] [id number] Dec, Comprehensive diabetic foot examination, type 2 DM, encounter for E11.9 [facility] [address] [id number] [place] [id number] Nov, Type II or unspecified type diabetes mellitus without mention of complication, not stated as uncontrolled E11.9 [facility] [id number] [place] [address], [place] [id number] Nov, Type II or unspecified type diabetes mellitus without mention of complication, not stated as uncontrolled E11.9 and Plantar callus L84 [facility] [place] [id number] [place] [id number] Oct, Medicare welcome exam Z00.00 and Encounter for immunization Z23 [facility] [place] [address] [id number] [place] [id number] July, [facility] [id number] [place] [address], [place] [id number] July, Type II or unspecified type diabetes mellitus without mention of complication, not stated as uncontrolled E11.9 [facility] [id number] [place] [id number] Mar, Type II or unspecified type diabetes mellitus without mention of complication, not stated as uncontrolled E11.9 [facility] [address] [id number] [place] [id number] Feb, [facility] [address] [id number] [place] [id number] Feb, [facility] [address] [id number] [place] [id number] Dec, Type II or unspecified type diabetes mellitus without mention of complication, not stated as uncontrolled E11.9 and Encounter for immunization Z23 [facility] [id number] [id number] Aug, Type II or unspecified type diabetes mellitus without mention of complication, not stated as uncontrolled E11.9 [facility] [id number] [place] [id number] May, Type II or unspecified type diabetes mellitus without mention of complication, not stated as uncontrolled E11.9 [facility] [place] [id number] [place] [id number] Feb, Type II or unspecified type diabetes mellitus without mention of complication, not stated as uncontrolled E11.9 and Prostate cancer C61 [facility] [place] [address] [id number] [place] [id number] Jan, [facility] [place] [id number] [place] [id number] Dec, [facility] [address] [place] [id number] Nov, Diabetes mellitus without mention of complication, type II or unspecified type, not stated as uncontrolled 250.00 [facility] [place] [id number] [place] [phone] Sep, [facility] [place] [id number] [place] [id number] Aug, Diabetes mellitus without mention of complication, type II or unspecified type, not stated as uncontrolled 250.00 and Neoplasm of unspecified nature of other genitourinary organs 239.5 [facility] [id number] [place] [address] Jun, [facility] [id number] [place] [address] Jun, [place] [id number] [place] [id number] Feb, [facility] [id number] [place] [address] Feb, [id number] [place] [id number] Feb, [facility] [address] [facility] [id number] [address] Feb, [facility] [place] [address] [id number] [place] [phone] Dec, [facility] [address] [facility] [id number] [place] [address] Dec, [facility] [address] [facility] [id number] [place] [id number] Sep, [facility] [address] [facility] [id number] [place] [address] Sep, [facility] [address] [facility] [id number] [place] [id number] May, [facility] [address] [facility] [id number] [place] [address] May, [facility] [address] [place] [place] [id number] [address] May, [facility] [address] [facility] [id number] [place] [address] May, [facility] [address] [place] [id number] [address] Apr, [facility] [address] [facility] [id number] [place] [address] Apr, [facility] [address] [facility] [id number] [place] [address] Mar, [facility] [address] [facility] [id number] [place] [address] Mar, [facility] [address] [facility] [id number][place] [phone] Feb, [facility] [address] [facility] [id number] [place] [address] Feb, [facility] [address] [facility] [id number] [place] [address] Feb, [facility] [place] [address] [facility] [id number] [place] [phone] Feb, [facility] [address] [facility] [id number] [place] [phone] Feb, [facility] [address] [facility] [id number] [place] [address] Feb, [facility] [address] [facility] [id number] [place] [phone] Jan, [facility] [address] [facility] [id number] [place] [address] Jan, IMMUNIZATIONS No Known Immunizations SOCIAL HISTORY Never Assessed REASON FOR VISIT Diabetes visit Gilberto LING PLAN OF CARE Activity Details Follow Up 3 Months Reason:dm VITAL SIGNS Height 70.5 in 2017-02-15 Weight 235 lbs 2017-02-15 Temperature 97.9 degrees Fahrenheit 2017-02-15 Heart Rate 78 bpm 2017-02-15 Respiratory Rate 16 2017-02-15 BMI 33.24 kg/m2 2017-02-15 Blood pressure systolic 128 mmHg 2017-02-15 Blood pressure diastolic 80 mmHg 2017-02-15 MEDICATIONS Medication Instructions Dosage Frequency Start Date End Date Duration Status Metformin HCl 500 MG Orally twice a day 2 tab am 1 tab pm 12h Active Aspirin 325 MG Orally Once a day 1 tablet 24h Active Lipitor 40 mg Orally Once a day 1 tablet 24h Active Flomax 0.4 mg take 1 capsule (0.4 mg) by oral route once daily 1/2 hour following the same meal each day Feb, Active TRUEtest Test - as directed Aug, Active Lisinopril 10 mg Orally Once a day 1 tablet 24h Feb, Active RESULTS Name Result Date Reference Range A1C (IN HOUSE) 2017-02-15 A1C IN HOUSE 6.2 4.3 - 5.6 % Previous A1c 6.3 Lot [id number] Exp date 10/2018 PROCEDURES Procedure Date Ordered Result Body Site [facility] VISIT ESTABLISHED PATIENT Feb 15, 2017 GLYCATED HEMOGLOBIN TEST Feb 15, 2017 INSTRUCTIONS MEDICATIONS ADMINISTERED No Known Medications MEDICAL (GENERAL) HISTORY Type Description Date Medical History type II diabetes Medical History prostate cancer Surgical History cholecystectomy 2012 Surgical History prostate surgery, seeded prostate 2012 Surgical History left hip replacement x 3 2011 Surgical History left shoulder surgery 2013 Surgical History right ankle fused 2002 Surgical History lithotripsy 2002 Hospitalization History surgeries
--- OUTSIDE RECORDS SUMMARY | 2018-04-02 12:51 | XMS REPORT ---
Author Author SHAGGY BEY Organization [employer] Address Unknown Phone Unavailable Care Team Providers Care Slasher Runner Name Role Phone SHAGGY BEY CP Unavailable [...] Start Date End Date Status Dosage Lipitor [facility] [address]-39 40 MG Orally Once a day August 19, 2014 1 tablet Results No Known Results Summary Purpose [employer] Submission
[2018-04-02] MEDS ORDERED: NS IV 1000 ML 1,000 ML IV ONE (13:09)
--- NOTE | 2018-04-02 13:21 | ED General ---
General Chief Complaint: -Male Stated Complaint: L HIP FX Source of Information: Patient Exam Limitations: No Limitations History of Present Illness Date Seen by Provider: Apr 02, 2018 Time Seen by Provider: 12:46 Initial Comments Here by a [facility] EMS in transfer from [facility]. He was apparently transported there earlier for weakness and they have done an evaluation on him. He had reported difficulty with urination and weakness and he did have a Ma catheter placed to evaluate urine. He had some complaints of mild left hip pain and x-rays of the left hip and pelvis were ordered. He was transferred here for persistent weakness and further evaluation of the urine. Apparently he had greater trochanter fracture on the left hip that is new but has hip replacement and hardware is reportedly still in place and seated. Patient is currently on Bactrim for possible urinary tract infection and/or kidney stones. Reportedly saw Dr. Abdullahi last Tuesday and was found to have kidney stones. Was started on Bactrim DS at that point. He continues that through today. Patient states that here rolled out of bed onto the floor this morning and landed on his left hip. He is unable to get himself up and EMS was called and took him to the hospital. This is his second fall in the last few weeks. Both from the bed to the floor and landing on the left hip. Denies nausea, vomiting, diarrhea or dysuria. States that it is harder to urinate and/ or to get a good stream. He denies chest pain or breathing problems. Denies significant hip pain currently. Timing/Duration: 1 Week, Changing Over Time, Getting Worse Severity: Moderate Modifying Factors: improves with Rest Associated Systoms: No Chest Pain, No Cough; Fever/Chills (temp of 99.8 at outside facility today.); No Nausea/Vomiting, No Shortness of Air; Weakness Allergies and Home Medications Allergies Coded Allergies: No Known Drug Allergies (Unverified , 04/02/18) Home Medications Aspirin 81 Mg Tabec, 81 MG PO DAILY, (Reported) Atorvastatin Calcium 40 Mg Tablet, 1 EACH PO HS, (Reported) Ciprofloxacin 500 Mg Tab, 500 MG PO BID, (Reported) Hydrocodone Bit/Acetaminophen 1 Ea Tab, 1 EA PO Q4H PRN, (Reported) Metformin Hcl 500 Mg Tablet, 1 EACH PO DAILY, (Reported) Oxycodone Hcl/Acetaminophen 1 Tab Tablet, 1 TAB PO Q4H, (Reported) Phenazopyridine Hcl 200 Mg Tablet, 1 EACH PO TID PRN, (Reported) Tamsulosin Hcl 0.4 Mg Cap, 0.4 MG PO DAILY, (Reported) Patient Home Medication List Home Medication List Reviewed: Yes Review of Systems Review of Systems Constitutional: see HPI; No chills; fever, weakness EENTM: no symptoms reported Respiratory: no symptoms reported Cardiovascular: no symptoms reported Gastrointestinal: No abdominal pain, No diarrhea, No nausea, No vomiting Genitourinary: No dysuria; hesitancy; No pain Musculoskeletal: no symptoms reported Skin: no symptoms reported Psychiatric/Neurological: See HPI; Denies Headache, Denies Numbness, Denies Tingling All Other Systems Reviewed Negative Unless Noted: Yes Past Arpcgem-Gncndl-Gpdzeu Hx Past Med/Social Hx: Reviewed Nursing Past Med/Soc Hx Patient Social History Alcohol Use: Denies Use Recreational Drug Use: No Smoking Status: Never a Smoker Physical Abuse: No Sexual Abuse: No Mistreated: No Fear: No Immunizations Up To Date Date of Pneumonia Vaccine: Dec 29, 2009 Date of Influenza Vaccine: Jan 30, 2012 Past Medical History Surgeries: Yes Gallbladder, Orthopedic Respiratory: No Cardiac: Yes High Cholesterol, Hypertension Neurological: No Genitourinary: Yes Prostate Problems Gastrointestinal: No Musculoskeletal: Yes Fractures Endocrine: Yes Diabetes, Non-Insulin dep Cancer: Yes Prostate Family Medical History Reviewed Nursing Family Hx No Pertinent Family Hx Physical Exam Vital Signs Vital Signs - First Documented 04/02/18 12:48 Temp 96.7 Pulse 92 Resp 20 B/P (MAP) 131/80 (97) Pulse Ox 95 O2 Delivery Room Air Capillary Refill : Height, Weight, BMI Height: '" Weight: 237lbs. oz. 107.336612lz; BMI Method: General Appearance: No Apparent Distress, WD/WN HEENT: PERRL/EOMI, Pharynx Normal Neck: Non Tender, Supple Respiratory: Lungs Clear, Normal Breath Sounds Cardiovascular: Regular Rate, Rhythm, No Murmur Gastrointestinal: Non Tender, Soft Back: Normal Inspection, No CVA Tenderness, No Vertebral Tenderness Extremity: Normal Range of Motion, Pelvis Stable Neurologic/Psychiatric: Alert, Oriented x3 Skin: Normal Color, Warm/Dry; No Ecchymosis Focused Exam Lactate Level 04/02/18 13:27: Lactic Acid Level 1.75 Lactic Acid Level Laboratory Tests Test 04/02/18 13:27 Lactic Acid Level 1.75 MMOL/L (0.50-2.00) Progress/Results/Core Measures Suspected Sepsis SIRS Temperature: Pulse: Respiratory Rate: Blood Pressure / Mean: 04/02/18 13:27: Lactic Acid Level 1.75 04/02/18 13:27: Lactic Acid Level 1.75 Results/Orders Lab Results Laboratory Tests Test 04/02/18 12:50 04/02/18 12:57 04/02/18 13:27 Range/Units Troponin I 0.080 <0.028 NG/ML C-Reactive Protein High Sensitivity 11.52 H 0.00-0.50 MG/DL Urine Color KIMBERLEY H Urine Clarity SLIGHTLY CLOUDY Urine pH 5 5-9 Urine Specific Vendor 1.020 1.016-1.022 Urine Protein 3+ H NEGATIVE Urine Glucose (UA) NEGATIVE NEGATIVE Urine Ketones NEGATIVE NEGATIVE Urine Nitrite NEGATIVE NEGATIVE Urine Bilirubin NEGATIVE NEGATIVE Urine Urobilinogen NORMAL NORMAL MG/DL Urine Leukocyte Esterase 3+ H NEGATIVE Urine RBC (Auto) 5+ H NEGATIVE Urine RBC TNTC H /HPF Urine WBC TNTC H /HPF Urine Crystals NONE /LPF Urine Bacteria LARGE H /HPF Urine Casts NONE /LPF Urine Mucus MODERATE H /LPF Urine Culture Indicated YES Lactic Acid Level 1.75 0.50-2.00 MMOL/L Micro Results Microbiology 04/02/18 Influenza Types A,B Antigen (JONI) - Final, Complete My Orders Orders - VONNIE ANDERSON MD Hs C Reactive Protein (04/02/18 13:09) Troponin I (04/02/18 13:09) Ua Culture If Indicated (04/02/18 13:09) Ekg Tracing (04/02/18 13:09) Monitor-Rhythm Ecg Trace Only (04/02/18 13:09) Lactic Acid Analyzer (04/02/18 13:09) Blood Culture (04/02/18 13:09) Ns Iv 1000 Ml (Sodium Chloride 0.9%) (04/02/18 13:09) Chest 1 View, Ap/Pa Only (04/02/18 13:38) Ct Head Wo (04/02/18 14:20) Influenza A And B Antigens (04/02/18 14:35) Urine Culture (04/02/18 12:57) Ceftriaxone For Iv Use (Rocephin For I (04/02/18 15:45) Acetaminophen Tablet (Tylenol Tablet) (04/02/18 15:54) Medications Given in ED Current Medications Medications Dose Ordered Sig/Rochelle Route Start Time Stop Time Status Last Admin Dose Admin Ceftriaxone Sodium 1000 mg/ Sodium Chloride 60 ml @ 100 mls/hr ONCE ONCE IV 04/02/18 15:45 04/02/18 16:20 04/02/18 15:47 100 MLS/HR Sodium Chloride 1,000 ml @ 0 mls/hr Q0M ONCE IV 04/02/18 13:09 04/02/18 13:16 DC 04/02/18 13:26 1,000 MLS/HR Vital Signs/I&O 04/02/18 04/02/18 04/02/18 04/02/18 12:48 13:23 14:30 14:56 Temp 96.7 98.5 98.3 98.6 Pulse 92 78 97 Resp 20 22 B/P (MAP) 131/80 (97) 161/84 Pulse Ox 95 95 96 O2 Delivery Room Air Room Air Room Air 04/02/18 04/02/18 15:15 15:52 Temp 99.8 Pulse 112 Resp 28 B/P (MAP) 142/84 (103) 122/85 (97) Pulse Ox 95 Capillary Refill : Progress Note : Progress Note Seen and evaluated. We will repeat UA here. Labs from outside facility reviewed as well as x-rays. Her is fracture of the greater trochanter noted on the x-ray and report indicates the hardware is still in place appropriately. Patient did have a troponin elevation potentially an outside facility although was trending down. We will go ahead and draw her own troponin and EKG to evaluate for cardiac-related weakness. Patient did have temperature of 99.9 and 99.8 so we will draw blood cultures and lactic acid. Normal saline 1 L bolus ordered. Patient did have to have bowel movement after arrival here. He is assisted to bedside commode and required minimal or no assistance and had no difficulty with transfer. Monitor patient. 1536: Patient has developed chills. Temperature still 99.8. Heart rate has increased to the 110s. This is despite fluid. Urine does show rather significant urinary tract infection. CRP is elevated. The EKG and troponin are negative. I am concerned about developing sepsis. He is not hypotensive and in fact has blood pressure in the 130s. I did discuss the case with Dr. Andrade and we will admit him for concerns for urinary tract infection. Rocephin 1 g IV ordered. We will continue IV fluids and insulin sliding scale. Admit, inpatient status. Patient and family agree with plan. ECG Initial ECG Impression Date: Apr 02, 2018 Initial ECG Impression Time: 13:07 Initial ECG Rate: 82 Initial ECG Rhythm: Normal Sinus Diagnostic Imaging Diagonstic Imaging: CT Plain Films/CT/US/NM/MRI: abdomen, pelvis Comments CT from 03/30/18. Not ordered during this visit but added for information purposes. NAME: UMAIR RAYA [facility] REC#: [id number] PT STATUS: REG CLI : 1940 PHYSICIAN: DORITA ABDULLAHI MD ADMIT DATE: 03/30/18/RAD Signed Date of Exam: 03/30/18 CT ABD/PELVIS WO(KIDNEY STONE) PROCEDURE: CT urinary tract, rule out kidney stone. TECHNIQUE: Multiple contiguous axial images were obtained through the abdomen and pelvis without the use of intravenous contrast. INDICATION: Hematuria. Comparison is made with prior CT from 10/20/2012. The lung bases are clear. No discrete liver mass is detected. The gallbladder is surgically absent. No biliary ductal dilatation is seen. Pancreas and spleen are unremarkable. No adrenal mass is seen. There is a slight prominent portacaval node measuring 2.6-1.3 cm. The right kidney is unremarkable. There are several punctate nonobstructing calculi in the upper and lower pole of the left kidney. No definite ureteral calculi or hydronephrosis is seen. Aorta is not aneurysmal. No central retroperitoneal or mesenteric lymphadenopathy is detected. There is a generalized colonic diverticulosis but no evidence of acute diverticulitis. Imaging through the pelvis is limited due to streak artifact from patient's bilateral hip prostheses. There does appear to be some wall thickening of the urinary bladder, particularly along the left lateral wall measuring to a thickness of 7 mm. Radiation seed implants within the prostate are noted. Bony structures are nonacute. Impression: 1. Tiny nonobstructing left renal calculi. 2. Bladder wall thickening along the left lateral bladder wall. A bladder neoplasm cannot be entirely excluded. Cystoscopy would be recommended for further evaluation. 3. Uncomplicated colonic diverticulosis. Dictated by: Dictated on workstation # [id number] Dict: 03/30/18 0935 Trans: 03/30/18 1558 Interpreted by: ARLETTE POP MD Electronically signed by: ARLETTE POP MD 03/30/18 1558 Diagonstic Imaging: Xray Plain Films/CT/US/NM/MRI: chest Comments [facility] [place] NAME: UMAIR RAYA [facility] REC#: [id number] PT STATUS: REG ER : 1940 PHYSICIAN: VONNIE ANDERSON MD ADMIT DATE: 04/02/18/ER Draft Date of Exam:04/02/18 CHEST 1 VIEW, AP/PA ONLY INDICATION: Weakness, recent fall. COMPARISON: 03/14/2015, CT chest. FINDINGS: Single view of the chest demonstrates chronic left-sided rib deformities. There is no pneumothorax or effusion. The heart is prominent without pulmonary edema. No focal infiltrate. IMPRESSION: Chronic left-sided rib fractures. No acute abnormality identified. Dictated on workstation # [id number] Dict: 04/02/18 1407 Trans: 04/02/18 1414 [id number] Interpreted by: MIKE CHENG Electronically signed by: Departure Communication (Admissions) Time/Spoke to Admitting Phy: 15:36 Impression Primary Impression: Urinary tract infection Qualified Codes: N30.00 - Acute cystitis without hematuria Disposition: ADMITTED INPATIENT Condition: Stable Admissions Decision to Admit Reason: Admit from ER (General) Decision to Admit/Date: Apr 02, 2018 Time/Decision to Admit Time: 15:36 Departure-Patient Inst. Referrals: ALTON TIDWELL DO (PCP) Primary Care Physician SHAGGY BEY (Family) Primary Care Physician VONNIE ANDERSON MD Apr 02, 2018 13:21
--- NOTE | 2018-04-02 13:28 | NUR ---
According to family, the patient saw Dr. Galicia Tuesday and had CT done showing kidney stones and started him on Bactrim for UTI. Pt has been falling frequently and stated has been having to pick him up off the ground several times. That is why they went to [facility]. stated that [place] stated that he can come here to get admitted and she stated because he has been falling so frequently.
--- NOTE | 2018-04-02 14:14 | Diagnostic Imaging Report ---
INDICATION: Weakness, recent fall. COMPARISON: 03/14/2015, CT chest. FINDINGS: Single view of the chest demonstrates chronic left-sided rib deformities. There is no pneumothorax or effusion. The heart is prominent without pulmonary edema. No focal infiltrate. IMPRESSION: Chronic left-sided rib fractures. No acute abnormality identified. Dictated by: Dictated on workstation # [id number]
[2018-04-02 14:25] LABS: BILIRUBIN,URINE NEGATIVE (NEGATIVE); CLARITY,URINE SLIGHTLY CLOUDY; COLOR,URINE AMBER; GLUCOSE, URINE (UA) NEGATIVE (NEGATIVE); KETONES,URINE NEGATIVE (NEGATIVE); LEUKOCYTE ESTERASE ,URINE 3+ (NEGATIVE); NITRITE,URINE NEGATIVE (NEGATIVE); PH,URINE 5 (5-9); PROTEIN,URINE 3+ (NEGATIVE); UROBILINOGEN,URINE NORMAL (NORMAL)
[2018-04-02 14:36] LABS: BACTERIA,URINE LARGE /HPF; RBC,URINE TNTC /HPF; WBC,URINE TNTC /HPF
--- NOTE | 2018-04-02 15:09 | Diagnostic Imaging Report ---
PROCEDURE: CT head without contrast. TECHNIQUE: Multiple contiguous axial images were obtained through the brain without the use of intravenous contrast. INDICATION: Weakness, fall out of bed. COMPARISON: None available. FINDINGS: No hyperdense hemorrhage or space-occupying mass. No hydrocephalus or midline shift. Global atrophy is present. Periventricular white matter hypoattenuation is most compatible with chronic microvascular ischemic disease. No acute skull fracture. Paranasal sinuses and mastoid air cells are clear. Right-sided cataract surgery has been performed. IMPRESSION: No acute intracranial process by CT. Dictated by: Dictated on workstation # [id number]
[2018-04-02 15:15] VITALS: BP 142/84
[2018-04-02] MEDS ORDERED: cefTRIAXone FOR IV USE 1,000 MG in NS (IVPB) 50 ML IV ONE (15:45)
[2018-04-02 15:52] VITALS: BP 122/85
[2018-04-02] MEDS ORDERED: ACETAMINOPHEN 500 MG TAB (TYLENOL) PO STA (15:54)
--- OUTSIDE RECORDS SUMMARY | 2018-04-02 16:05 | XMS REPORT | Continuity of Care Document ---
Author Author [facility] Address Unknown Phone Unavailable Allergies Active Description Code Type Severity Reaction Onset Reported/Identified Relationship to Patient Clinical Status Yes No Known Drug Allergies [id number] Drug Allergy Unknown N/A 10/05/2012 Medications There [...] 250.00 DIABETES II CONTROLLED (UNCOMPLICATED) 02/20/2013 BEY ACCOUNTING MANAGER ASSISTANT CONTROLLER, SHAGGY R 239.5 PROSTATE NEOPLASM 02/20/2013 BEY ACCOUNTING MANAGER ASSISTANT CONTROLLER, SHAGGY R 250.00 DIABETES II CONTROLLED (UNCOMPLICATED) 02/20/2013 DIANN LEMUS ALTON K 239.5 PROSTATE NEOPLASM 02/20/2013 DIANN LEMUS, ALTON K 250.00 DIABETES II CONTROLLED (UNCOMPLICATED) 02/20/2013 TIDWELL DO, ALTON K 239.5 PROSTATE NEOPLASM 02/20/2013 TIDWELL DO, ALTON K 250.00 DIABETES II CONTROLLED (UNCOMPLICATED) 02/20/2013 BEY ACCOUNTING MANAGER ASSISTANT CONTROLLER, SHAGGY R 239.5 PROSTATE NEOPLASM 02/20/2013 BEY ACCOUNTING MANAGER ASSISTANT CONTROLLER, SHAGGY R 250.00 DIABETES II CONTROLLED (UNCOMPLICATED) 02/20/2013 BEY ACCOUNTING MANAGER ASSISTANT CONTROLLERSHAGGY Mcdonnell R 239.5 PROSTATE NEOPLASM 02/20/2013 BEY ACCOUNTING MANAGER ASSISTANT CONTROLLERSHAGGY Mcdonnell R 250.00 DIABETES II CONTROLLED (UNCOMPLICATED) 03/06/2013 ALTON TIDWELL DO K 780.52 INSOMNIA UNSPECIFIED 03/06/2013 BEY ACCOUNTING MANAGER ASSISTANT CONTROLLERSHAGGY Mcdonnell R 780.52 INSOMNIA UNSPECIFIED 03/06/2013 DIANN KORY LEMUSA K 780.52 INSOMNIA UNSPECIFIED 03/06/2013 DIANN ALTON LEMUS K 780.52 INSOMNIA UNSPECIFIED 03/06/2013 BEY ACCOUNTING MANAGER ASSISTANT CONTROLLERSHAGGY Mcdonnell R 780.52 INSOMNIA UNSPECIFIED 03/06/2013 BEY ACCOUNTING MANAGER ASSISTANT CONTROLLERSHAGGY Mcdonnell R 780.52 INSOMNIA UNSPECIFIED 02/19/2014 SOTERO BLAKELYSHAGGY Mcdonnell R 465.9 UPPER RESPIRATORY INFECTION 03/19/2014 BRADLY CRAIG, DORITA Rudolph Ot 592.0 03/19/2014 BRADLY CRAIG, DORITA Rudolph Ot 592.0 03/19/2014 BRADLY CRAIG, DORITA Rudolph Ot 594.1 03/19/2014 BRADLY CRAIG, DORITA Rudolph Ot 793.11 03/19/2014 BRADLY CRAIG, DORITA Rudolph Ot 592.0 03/19/2014 BRADLY CRAIG, DORITA Rudolph Ot 592.1 03/19/2014 BRADLY CRAIG, DORITA Ruodlph Ot 594.1 03/19/2014 BRADLY CRAIG, DORITA Rudolph Ot 602.9 03/19/2014 BRADLY CRAIG, DORITA A Ot V72.83 03/19/2014 BRADLY CRAIG, DORITA A Ot V74.8 03/19/2014 BRALDY CRAIG, DORITA A Ot 185 03/19/2014 BRADLY [...] 185 03/14/2015 BRADLY CRAIG, DORITA A Ot 562.10 03/14/2015 BRADLY CRAIG, [...] Ot 592.0 CALCULUS OF KIDNEY 05/05/2016 BRADLY CARIG, DORITA Rudolph Ot 594.1 BLADDER CALCULUS NEC [...] SOLITARY PULMONARY NODULE 03/30/2018 BRADLY CRAIG, DORITA Rudoplh Ot K57.30 DVRTCLOS OF LG INT W/O PERFORATION OR AB 03/30/2018 DORITA ABDULLAHI MD Ot N20.0 CALCULUS OF KIDNEY 03/30/2018 DORITA ABDULLAHI MD, Ot N32.89 OTHER SPECIFIED DISORDERS OF BLADDER 03/30/2018 BRADLY CRAIG, DORITA Rudolph Ot Z90.49 ACQUIRED ABSENCE OF OTHER SPECIFIED PART Procedures Code Description [place] [address] A1C (IN-HOUSE) 02/20/2013 26826 ROUTINE VENIPUNCTURE 02/21/2013 40393 MICRO ALBUMIN-IN HOUSE 02/21/2013 87988 CBC 02/21/2013 1876384 GFR CALC (RESULT ONLY) 02/21/2013 97063 CMP 02/21/2013 83429 LIPID PANEL 02/21/2013 80338 TSH 02/21/2013 24912 A1C (IN-HOUSE) 05/30/2013 84241 A1C (IN-HOUSE) 09/12/2013 Results Test Result Range CBC - 01/03/18 11:20 WHITE BLOOD CELL COUNT 6.8 Thousand/uL 3.8-10.8 RED BLOOD CELL COUNT 4.27 Million/uL 4.20-5.80 HEMOGLOBIN 12.6 g/dL 13.2-17.1 HEMATOCRIT 38.0 % 38.5-50.0 MCV 89.0 fL 80.0-100.0 MCH 29.5 pg 27.0-33.0 MCHC 33.2 g/dL 32.0-36.0 RDW 14.0 % 11.0-15.0 PLATELET COUNT 194 Thousand/uL 140-400 MPV 10.4 fL 7.5-12.5 ABSOLUTE NEUTROPHILS 4699 cells/uL 7651-9063 ABSOLUTE LYMPHOCYTES 1421 cells/uL 850-3900 ABSOLUTE MONOCYTES 530 cells/uL 200-950 ABSOLUTE EOSINOPHILS 88 cells/uL 15-500 ABSOLUTE BASOPHILS 61 cells/uL 0-200 NEUTROPHILS 69.1 % NRG LYMPHOCYTES 20.9 % NRG MONOCYTES 7.8 % NRG EOSINOPHILS 1.3 % NRG BASOPHILS 0.9 % NRG Serum or plasma troponin i.cardiac measurement (mass/volume) - 04/02/18 12:50 Serum or plasma troponin i.cardiac measurement (mass/volume) 0.080 ng/mL <0.028 Serum or plasma C reactive protein measurement (mass/volume) - 04/02/18 12:50 Serum or plasma C reactive protein measurement (mass/volume) 11.52 mg/dL 0.00-0.50 Complete urinalysis with reflex to culture - 04/02/18 12:57 Urine color determination KIMBERLEY NRG Urine clarity determination SLIGHTLY CLOUDY NRG Urine pH measurement by test strip 5 5-9 Specific gravity of urine by test strip 1.020 1.016- 1.022 Urine protein assay by test strip, semi-quantitative 3+ NEGATIVE Urine glucose detection by automated test strip NEGATIVE NEGATIVE Erythrocytes detection in urine sediment by light microscopy 5+ NEGATIVE Urine ketones detection by automated test strip NEGATIVE NEGATIVE Urine nitrite detection by test strip NEGATIVE NEGATIVE Urine total bilirubin detection by test strip NEGATIVE NEGATIVE Urine urobilinogen measurement by automated test strip (mass/volume) NORMAL NORMAL Urine leukocyte esterase detection by dipstick 3+ NEGATIVE Automated urine sediment erythrocyte count by microscopy (number/high power field) TNT NR Automated urine sediment leukocyte count by microscopy (number/high power field ) TNT NR Bacteria detection in urine sediment by light microscopy LARGE NRG Crystals detection in urine sediment by light microscopy NONE NRG Casts detection in urine sediment by light microscopy NONE NRG Mucus detection in urine sediment by light microscopy MODERATE NRG Complete urinalysis with reflex to culture YES NRG Blood lactic acid measurement (moles/volume) - 04/02/18 13:27 Blood lactic acid measurement (moles/volume) 1.75 mmol/L 0.50-2.00 Influenza virus A and B antigen detection - 04/02/18 14:35 FLU RESULT NEGATIVE FOR INFLUENZA A AND B ANTIGENS BY IA NRG Encounters ACCT No. Visit Date/Time Discharge Status Pt. Type Provider Facility Loc./Unit Complaint [id number] 02/19/2014 10:10:00 02/19/2014 23:59:59 CLS Outpatient SHAGGY BEY APRN [id number] 09/12/2013 09:47:00 09/12/2013 23:59:59 CLS Outpatient ALTON TIDWELL DO [id number] 09/12/2013 09:47:00 09/12/2013 23:59:59 CLS Outpatient SHAGGY BEY APRN [id number] 05/30/2013 13:10:00 05/30/2013 23:59:59 CLS Outpatient ALTON TIDWELL DO [id number] 03/06/2013 10:27:00 03/06/2013 23:59:59 CLS Outpatient ALTON TIDWELL DO [id number] 02/21/2013 08:19:00 02/21/2013 23:59:59 CLS Outpatient ALTON TIDWELL DO [id number] 02/20/2013 11:00:00 02/20/2013 23:59:59 CLS Outpatient SHAGGY BEY APRN [id number] 01/15/2013 16:07:00 01/15/2013 23:59:59 CLS Outpatient ALTON TIDWELL DO [id number] 03/20/2014 08:27:24 ACT Document Registration [id number] 09/28/2017 15:20:00 09/28/2017 23:59:59 CLS Outpatient SHAGGY BEY APRN [facility] [id number] 01/03/2018 10:40:00 Document Registration [id number] 03/30/2018 08:29:00 03/30/2018 23:59:59 CLS Outpatient DORITA ABDULLAHI MD [facility] RAD HEMATURIA,RENAL STONES [id number] 03/14/2015 09:07:00 03/14/2015 23:59:59 CLS Outpatient DORITA ABDULLAHI MD [facility] RAD PULMONARY NODULE [id number] 03/20/2014 08:26:00 03/20/2014 23:59:59 CLS Outpatient DORITA ABDULLAHI MD [facility] RAD RT PULMONARY NODULE [id number] 06/11/2013 08:48:00 06/11/2013 23:59:59 CLS Outpatient BETTY ALVAREZ MD [facility] ONC [id number] 03/21/2013 09:18:00 03/21/2013 23:59:59 CLS Outpatient DORITA ABDULLAHI MD [facility] RAD RT PULM NODULE [id number] 01/26/2013 08:16:00 02/08/2013 00:01:00 DIS Outpatient BETTY ALVAREZ MD [facility] ONC [id number] 12/29/2012 06:00:00 12/29/2012 11:20:00 DIS Outpatient DORITA ABDULLAHI MD [facility] PROSTATE CANCER [id number] 12/18/2012 08:32:00 12/18/2012 23:59:59 CLS Outpatient DORITA ABDULLAHI MD [facility] PREOP PROSTATE CANCER [id number] 10/20/2012 09:33:00 10/20/2012 23:59:59 CLS Outpatient DORITA ABDULLAHI MD [facility] RAD CA PROSTATE [id number] 10/10/2012 08:18:00 10/10/2012 15:48:00 DIS Outpatient DORITA ABDULLAHI MD [facility] RIGHT RENAL STONE; ABDORMAL PROSTATE [id number] 10/05/2012 09:16:00 10/05/2012 23:59:59 CLS Outpatient DORITA ABDULLAHI MD [facility] PREOP [id number] 09/28/2012 14:12:00 09/28/2012 23:59:59 CLS Outpatient DORITA ABDULLAHI MD [facility] RAD RIGHT URETERAL STONES, HEMATURIA [id number] 09/28/2012 12:01:00 09/28/2012 23:59:59 CLS Outpatient DORITA ABDULLAHI MD [facility] RAD [id number] 04/02/2018 13:33:00 Document Registration
--- NOTE | 2018-04-02 16:14 | NUR ---
UMAIR RAYA admitted to room 420-1, with an admitting diagnosis of uti, on 04/02/18 from ED via wheel chair , accompanied by family .UMAIR RAYA introduced to surroundings, call light, bed controls, phone, TV, temperature control, lights, meal times, smoking policy, visitor policy, side rail policy, bathrooms and showers. Patient Rights given to patient in the handbook. UMAIR RAYA verbalizes understanding that [facility] is not responsible for the loss or damage to any personal effects or valuables that are kept in the patients posession during their hospitalization. The following Patient Care Plans and discharge were discussed with the patient and family. UMAIR RAYA verbalizes understanding of Interdisciplinary Patient Education.
[2018-04-02 16:56] VITALS: BP 95/64
[2018-04-02 16:58] VITALS: BP 95/64
[2018-04-02] MEDS ORDERED: ASPI-38 PO (17:11)
[2018-04-02] MEDS ORDERED: SULF1TAB35 PO (17:11)
[2018-04-02] MEDS: NS IV 1000 ML 1,000 ML IV SCH (17:31)
[2018-04-02 20:00] VITALS: BP 123/68
[2018-04-02] MEDS: inSUlin ASPART (NovoLOG) 1 UNIT/0.01 ML (CHARGE PER UNIT) SC SCH (20:07)
[2018-04-03 00:30] VITALS: BP 117/67
[2018-04-03] MEDS: NS IV 1000 ML 1,000 ML IV SCH ×3 (02:14→17:49)
[2018-04-03 04:02] VITALS: BP 128/60
[2018-04-03 05:40] LABS: BASOPHILS % (AUTO) 0 % (0-10); EOSINOPHILS # (AUTO) 0.1 10^3/uL (0.0-0.3); EOSINOPHILS % (AUTO) 1 % (0-10); HEMATOCRIT 34 % (40-54); HEMOGLOBIN 11.1 G/DL (13.3-17.7); LYMPHOCYTES # (AUTO) 0.6 X 10^3 (1.0-4.0); LYMPHOCYTES % (AUTO) 8 % (12-44); MEAN CORPUSCULAR HEMOGLOBIN 29 PG (25-34); MEAN CORPUSCULAR HGB CONC 33 G/DL (32-36); MEAN CORPUSCULAR VOLUME 88 FL (80-99); MEAN PLATELET VOLUME 9.9 FL (7.4-10.4); MONOCYTES # (AUTO) 0.3 X 10^3 (0.0-1.0); MONOCYTES % (AUTO) 3 % (0-12); NEUTROPHILS # (AUTO) 7.2 X 10^3 (1.8-7.8); NEUTROPHILS % (AUTO) 88 % (42-75); PLATELET COUNT 125 10^3/uL (130-400); RED CELL DISTRIBUTION WIDTH 15.7 % (10.0-14.5); WHITE BLOOD COUNT 8.2 10^3/uL (4.3-11.0)
[2018-04-03 05:59] LABS: CALCIUM 8.7 MG/DL (8.5-10.1); CREATININE SERUM 1.2 MG/DL (0.60-1.30); POTASSIUM 4.7 MMOL/L (3.6-5.0)
[2018-04-03] MEDS: inSUlin ASPART (NovoLOG) 1 UNIT/0.01 ML (CHARGE PER UNIT) SC SCH ×4 (06:07→21:00)
--- NOTE | 2018-04-03 07:43 | NUR ---
informed Dr Elizalde of consult.
[2018-04-03] MEDS ORDERED: CATHETER FLUSH 10 ML SYR IV PRN (07:45)
[2018-04-03] MEDS ORDERED: FLU QUADRIvalent (5+ YOA) 2018-2019 (AFLURIA) 0.5 ML IM ONE (07:45)
[2018-04-03 08:11] VITALS: BP 123/66
--- NOTE | 2018-04-03 09:09 | History & Physical-Hospitalist ---
History of Present Illness HPI/Chief Complaint CC: Weakness and fever HPI: This is a 77-year-old white male clinic patient of [facility] in [facility] who presents to the ER with fever and weakness found to have UTI and in need of supportive care to be able to ambulate and gain strength back in order to be discharged home. He takes care of his is wheelchair bound. She has 2 grandchildren taking care of her currently and son drives and from [place] to take care of her also. Patient denies any pain. Conferred with Dr. Elizalde. Cystoscopy will be done tomorrow. Urine culture pending at this time Urology thinks there is some sort of prostate cancer causing this issue. Patient sees patient in the office regularly. To note he had a fall resulting in femur fracture but hardware from former hip replacement was in place with no concern so he is a nonsurgical candidate. Source: patient, old records Exam Limitations: no limitations Date Seen 04/03/18 Time Seen by a Provider: 09:30 Attending Physician Sonia Andrade MD PCP Ronda Del Angel DO Referring Physician Date of Admission Apr 02, 2018 at 15:40 Home Medications & Allergies Home Medications Reviewed patient Home Medication Reconciliation performed by pharmacy medication reconciliations hvac operations technician and/or nursing. Patients Allergies have been reviewed. 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) Alcohol Use: Denies Use Recreational Drug Use: No Smoking Status: Never a Smoker Physical Abuse Screen: No Sexual Abuse: No Recent Foreign Travel: No Contact w/other who traveled: No Recent Hopitalizations: No Recent Infectious Disease Expo: No Immunizations Up To Date Date of Pneumonia Vaccine: Dec 29, 2009 Date of Influenza Vaccine: Dec 05, 2017 Seasonal Allergies Seasonal Allergies: No Past Medical History Surgeries: Appendectomy, Gallbladder Cardiac: High Cholesterol Genitourinary: Prostate Problems, Bladder Infection Musculoskeletal: Fractures Endocrine: Diabetes, Non-Insulin dep Cancer: Prostate History of Blood Disorders: No Family History Reviewed Nursing Family Hx Colon cancer Completed stroke Diabetes mellitus Hypertension Respiratory disorder No Pertinent Family Hx Review of Systems Constitutional: see HPI, dizziness, fever, weakness EENTM: no symptoms reported Respiratory: no symptoms reported Cardiovascular: no symptoms reported Gastrointestinal: no symptoms reported Genitourinary: discharge, dysuria, frequency, hematuria, incontinence, nocturia Musculoskeletal: no symptoms reported Skin: no symptoms reported Psychiatric/Neurological: No Symptoms Reported Physical Exam Physical Exam Vital Signs Vital Signs - First Documented 04/02/18 12:48 Temp 96.7 Pulse 92 Resp 20 B/P (MAP) 131/80 (97) Pulse Ox 95 O2 Delivery Room Air Capillary Refill : Less Than 3 SecondsLess Than 3 Seconds Height, Weight, BMI Height: 5'10.00" Weight: 240lbs. 0.0oz. [id number]; 34.4 BMI Method:Stated General Appearance: No Apparent Distress, WD/WN, Chronically ill Eyes: Bilateral Eye Normal Inspection, Bilateral Eye PERRL HEENT: PERRL/EOMI, Normal ENT Inspection, Pharynx Normal Neck: Full Range of Motion, Normal Inspection, Non Tender, Supple, Carotid Bruit Respiratory: Chest Non Tender, Lungs Clear, Normal Breath Sounds, No Accessory Muscle Use, No Respiratory Distress Cardiovascular: Regular Rate, Rhythm, No Edema, No Gallop, No JVD, No Murmur, Normal Peripheral Pulses Gastrointestinal: Normal Bowel Sounds, No Organomegaly, No Pulsatile Mass, Non Tender, Soft Back: Normal Inspection, No CVA Tenderness, No Vertebral Tenderness Extremity: Normal Capillary Refill, Normal Inspection, Normal Range of Motion, Non Tender, No Calf Tenderness, No Pedal Edema Neurologic/Psychiatric: Alert, Oriented x3, No Motor/Sensory Deficits, Normal Mood/Affect Skin: Normal Color, Warm/Dry Lymphatic: No Adenopathy Results Results/Procedures Labs Laboratory Tests 04/03/18 05:10 Patient resulted labs reviewed. 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 Ma cath in place Plan: Maintain IV antibiotics Appreciate urology evaluation Physical therapy and occupational therapy Home meds Cystoscopy in the morning Admission Status: Inpatient Order (span 2 midnights) Reason for Inpatient Admission: Recurent UTI with weakness and bladder thickening susipcious for cancer Diagnosis/Problems Diagnosis/Problems (1) Weakness Status: Acute (2) Ma catheter in place Status: Acute (3) Bladder wall thickening Status: Acute (4) Hyponatremia Status: Acute (5) Diabetes mellitus Status: Chronic Qualifiers: Diabetes mellitus type: type 2 Diabetes mellitus miller wood flour insulin use: without miller wood flour use Diabetes mellitus complication status: with unspecified complications Qualified Codes: E11.8 - Type 2 diabetes mellitus with unspecified complications (6) Hypertension Status: Chronic (7) UTI (urinary tract infection) Status: Acute Qualifiers: Urinary tract infection type: acute cystitis Hematuria presence: with hematuria Qualified Codes: N30.01 - Acute cystitis with hematuria (8) LEFT HIP GREATER TROCHANTOR FRACTURE Status: Chronic Clinical Quality Measures DVT/VTE Risk/Contraindication: Risk Factor Score Per Nursin RFS Level Per Nursing on Admit: 4+=Very High VARSHA CABAN DO Apr 03, 2018 09:09
[2018-04-03] MEDS ORDERED: ATOR40TA70 PO (09:46)
[2018-04-03] MEDS ORDERED: SULF-222 PO (09:46)
[2018-04-03] MEDS ORDERED: ASPI325T32 PO (09:52)
[2018-04-03] MEDS ORDERED: METF-397 PO ×2 (09:52)
[2018-04-03] MEDS ORDERED: TAMS0.4C2 PO (09:52)
[2018-04-03] MEDS ORDERED: LISI10TA2 PO (09:52)
--- NOTE | 2018-04-03 09:55 | NUR ---
WENT OVER THE EXT MED HX WITH THE PATIENT, HE VERIFIED HOW HE TAKES THEM. HE TAKES ASPIRIN 325MG HS OTC.
[2018-04-03] MEDS ORDERED: ENOXAPARIN 40 MG/0.4 ML (LOVENOX) SYR SC SCH (10:00)
--- NOTE | 2018-04-03 11:38 | NUR ---
Inpatient rehab evaluation Received order to evaluate patient for admission to the inpatient rehab unit. PT and OT ordered, evaluations pending. Will follow. Thank you for the referral.
[2018-04-03 12:00] VITALS: BP 113/70
--- NOTE | 2018-04-03 13:29 | Physical Therapy Evaluation ---
PT Evaluation-General Medical Diagnosis Admission Date Apr 02, 2018 at 15:40 Medical Diagnosis: UTI, L Hip Greater Trochanter Fx Onset Date: Apr 02, 2018 Therapy Diagnosis Therapy Diagnosis: decreased mobility, decreased activity tolerance Height/Weight Height (Feet): 5 Height (Inches): 10.00 Weight (Pounds): 240 Weight (Ounces): 0.0 Precautions Precautions/Isolations: Fall Prevention, Standard Precautions Weight Bear Status Right Lower Extremity: Right Full Weight Bearing Left Lower Extremity: Left Full Weight Bearing Referral Physician: Dr. Casper Reason for Referral: Evaluation/Treatment Medical History Pertinent Medical History: DM, HTN, Prostate CA Current History patient fell out of bed and could not get himself up having to call EMS Reviewed History: Yes Social History Home: Single Level Current Living Status: Spouse Entry Into Home: Ramp Prior/Core FIM Prior Level of Function Therapy Code Descriptions/Definitions Functional [place] Measure: 0=Not Assessed/NA 4=Minimal Assistance 1=Total Assistance 5=Supervision or Setup 2=Maximal Assistance 6=Modified [place] 3=Moderate Assistance 7=Complete [place] Therapy Quality Codes: 6 Independent with activity with or without an assistive device 5 Patient requires set up or clean up by helper. Patient completes activity by themselves 4 Supervision or touching assist (CGA). Nikolai provide cues , steadying assist 3 The helper provides less than half the effort to complete the activity 2 The helper provides more than half the effort to complete the activity 1 Dependent. The helper does all the effort to complete an activity 7 Patient refused to complete or attempt activity 9 The patient did not perform the activity before the current illness or injury 88 Not attempted due to Medical conditions or safety concerns Functional Abilities and Goals: Independent: Patient completed the activities by him/herself, with or without an assistive device, with no assistance from a helper. Needed Some Help: Patient needed partial assistance from another person to complete activities. Dependent: A helper completed the activities for the patient. Unknown: Not Applicable: Bed Mobility: 7 Transfers (B,C,W/C) (FIM): 7 Gait: 7 Indoor Mobility (Ambulation): Independent Stairs: Not Applicalbe (ramp) Prior Devices Use: None Prior Device Use: Does have a FWW but hasn't used it for a long time PT Evaluation-Current Subjective Pt was in bed and agreed to PT. Pain Numeric Pain Scale: 3 Location: Left Location Body Site: Hip Objective Patient Orientation: Person, Place, Situation, Normal For Age Problem Solving: Fair Attachments: Ma Catheter, IV ROM/Strength ROM Lower Extremities WNL, not formally tested Strength Lower Extremities WNL, not formally tested Integumentary/Posture Bowel Incontinence: No Bladder Incontinence: Ma Cath Neuromuscular (Tone, Coordination, Reflexes) NT Sensory Vision: Functional Hearing: Functional Sensation Right Lower Extremit: Impaired Sensation Left Lower Extremity: Impaired Transfers Therapy Code Descriptions/Definitions Functional [place] Measure: 0=Not Assessed/NA 4=Minimal Assistance 1=Total Assistance 5=Supervision or Setup 2=Maximal Assistance 6=Modified [place] 3=Moderate Assistance 7=Complete [place] Transfers (B, C, W/C) (FIM): 4 Scootin Rollin Supine to/from Sit: 5 Sit to/from Stand: 4 Gait Mode of Locomotion: Walk Gait (FIM): 4 Distance (FIM): 3=150 ft Distance: 200' Gait Level of Assist: 4 Gait Persons Needed: 1 Gait Assistive Device: FWW Comments/Gait Description Pt amb with antalgic gait and slow gait speed. Balance Sitting Static: Good Sitting Dynamic: Good Standing Static: Good Standing Dynamic: Good Assessment/Needs Pt was able to perform bed mobility indep with use of bed assists. Pt was min A with sit<>stand transfer to FWW. Pt was able to amb 200' with FWW and CGA. Pt reported a mild increase in pain in the L hip when WB on that side. Pt returned to room and requested for bathroom. Pt is in bathroom with instructions to pull string for nurse assist when finished. Rehab Potential: Good Post Rehab Potential-Barriers: Current Co-morbidities PT Short Term Goals Short Term Goals Time Frame: Apr 10, 2018 Transfers (B,C,W/C) (FIM): 7 Gait (FIM): 6 Distance (FIM): 3=150 ft Gait Distance Comment: 500' Gait Level of Assist: 6 Gait Assistive Device: FWW PT Assembler Unit Goals Assembler Unit Goals PT Assembler Unit Goals Time Frame: Apr 29, 2018 Transfers (B,C,W/C) (FIM): 7 Gait (FIM): 7 Gait distance (FIM): 3=150 ft Distance: 800' Gait Level of Assist: 6 Gait Assistive Device: None, FWW PT Plan Problem List Problem List: Activity Tolerance, Functional Strength, Safety, Balance, Gait, Transfer, Bed Mobility, ROM Treatment/Plan Treatment Plan: Continue Plan of Care Treatment Plan: Bed Mobility, Education, Functional Activity [place], Functional Strength, Gait, Safety, Therapeutic Exercise, Transfers Treatment Duration: Apr 29, 2018 Frequency: 6 times per week Estimated Hrs Per Day: .25 hour per day Patient and/or Family Agrees t: Yes Safety Risks/Education Patient Education: Gait Training, Transfer Techniques, Correct Positioning, Safety Issues Teaching Recipient: Patient Teaching Methods: Demonstration, Discussion Response to Teaching: Verbalize Understanding, Return Demonstration, Reinforcement Needed Discharge Recommendations Therapy D/C Recommendations: Home Independently Equpiment Recommendations-D/C: Front Wheeled Walker Time/GCodes Time In: 1303 Time Out: 1315 Total Billed Treatment Time: 12 Total Billed Treatment 1 visit [facility] 12 min CHLOÉ HAN PT Apr 03, 2018 13:28
--- NOTE | 2018-04-03 14:59 | CONSULTATION REPORT ---
DATE OF SERVICE: 04/03/2018 ATTENDING PHYSICIAN: Dr. Tremayne Andrade. SUMMARY: After reviewing the patient's records of the hospital in the office, this is a 77-year-old white male with history of CA of the prostate post-brachytherapy 2012, was no evidence of recurrence. He was last seen in my office in March 28 of this year complaining of frequency or urgency, on and off hematuria. His PSA was 0.09. His kidney functions were fine. We put him at that time on Bactrim-DS and ordered a CT scan noncontrast that shows tiny nonobstructing left renal stones and thickening of the bladder wall on the left side. He should come back next week for a cystoscopy, but he has been admitted to the hospital after he fell and had some retention which he denies and some hematuria, microscopic. A catheter was inserted. The patient is on Flomax and has never had significant voiding symptoms except that some wet overactive bladder, which he elected to observe because of mild and Kegel exercises helping him. Urine in the catheter is clear. IMPRESSION: 1. Hematuria, urinary tract infection and abnormal left wall of the bladder by his CAT scan. 2. Left renal stones. 3. History of cancer of the prostate. PLAN: Cystoscopy tomorrow at bedside, local flexible, procedure was fully explained to the patient and all of his questions answered. Thank you for letting me participate in the care of this patient. We will follow with you . Job ID: [id number] DocumentID: [id number] Dictated Date: 04/03/2018 11:49:34 Lead Mobile Developer Date: 04/03/2018 14:58:55 Dictated By: DORITA ABDULLAHI MD
--- NOTE | 2018-04-03 16:34 | Occupational Therapy Eval ---
OT Evaluation-General/PLF Medical Diagnosis Admission Date Apr 02, 2018 at 15:40 Medical Diagnosis: UTI, L Hip Greater Trochanter Fx Onset Date: Apr 02, 2018 Therapy Diagnosis Therapy Diagnosis: Weakness Height/Weight Height (Feet): 5 Height (Inches): 10.00 Weight (Pounds): 240 Weight (Ounces): 0.0 Precautions Precautions/Isolations: Fall Prevention, Standard Precautions Safety Interventions: None Weight Bear Status Weight Bearing Restriction: Weight Bearing/Tolerated Referral Physician: Dr. Casper Referral Reason: Activity Tolerance, Self Care, Evaluation/Treatment, Strengthening/ROM Medical History Pertinent Medical History: DM, HTN, Prostate CA Additional Medical History Appendectomy, Gallbladder Current History Pt. lives with spouse in [place]. Had a fall at home and sustained a fx in hip. Pt. had hip replaced years ago and hardware intact. Pt. reports no pain with any movement. Reviewed History: Yes Social History Home: Single Level Current Living Status: Spouse Entry Into Home: Ramp Pt's spouse is in a wheelchair and can help pt. very little. Although she does do the cooking and cleaning. ADL-Prior Level of Function Therapy Code Descriptions/Definitions Functional [place] Measure: 0=Not Assessed/NA 4=Minimal Assistance 1=Total Assistance 5=Supervision or Setup 2=Maximal Assistance 6=Modified [place] 3=Moderate Assistance 7=Complete [place] Therapy Quality Codes: 6 Independent with activity with or without an assistive device 5 Patient requires set up or clean up by helper. Patient completes activity by themselves 4 Supervision or touching assist (CGA). [place] provide cues , steadying assist 3 The helper provides less than half the effort to complete the activity 2 The helper provides more than half the effort to complete the activity 1 Dependent. The helper does all the effort to complete an activity 7 Patient refused to complete or attempt activity 9 The patient did not perform the activity before the current illness or injury 88 Not attempted due to Medical conditions or safety concerns Functional Abilities and Goals: Independent: Patient completed the activities by him/herself, with or without an assistive device, with no assistance from a helper. Needed Some Help: Patient needed partial assistance from another person to complete activities. Dependent: A helper completed the activities for the patient. Unknown: Not Applicable: ADL PLOF Comments Pt. states that he is independent with daily tasks. Does not use a walker at home. Drives. Self Care: Independent Functional Cognition: Independent DME/Equipment: Bath Bench, Tub/Shower Drive Self: Yes OT Current Status Subjective No pain is reported with movement. Appearance Pt. is in bed. Alert and oriented. Nursing reports that pt. had shower earlier in day. Mental Status/Objective Patient Orientation: Person, Place, Time, Situation Current Hand Dominance: Right Upper Extremity ROM Right- WFL Left- very limited shoulder movement due to old injury. ADL-Treatment Therapy Code Descriptions/Definitions Functional [place] Measure: 0=Not Assessed/NA 4=Minimal Assistance 1=Total Assistance 5=Supervision or Setup 2=Maximal Assistance 6=Modified [place] 3=Moderate Assistance 7=Complete [place] Therapy Quality Codes: 6 Independent with activity with or without an assistive device 5 Patient requires set up or clean up by helper. Patient completes activity by themselves 4 Supervision or touching assist (CGA). [place] provide cues , steadying assist 3 The helper provides less than half the effort to complete the activity 2 The helper provides more than half the effort to complete the activity 1 Dependent. The helper does all the effort to complete an activity 7 Patient refused to complete or attempt activity 9 The patient did not perform the activity before the current illness or injury 88 Not attempted due to Medical conditions or safety concerns Lower Body Dressing (FIM): 4 (Pt. is able to doff socks while seated on side of bed. Had minimal difficulty donning and so OT assisted with one sock.) Transfers (B, C, W/C) (FIM): 5 (SBA supine-sit. SBA sit-stand with walker. Pt. able to take several steps toward HOB before sitting. Able to get both bilateral LE into bed with SBA.) Education OT Patient Education: Correct positioning, Modified ADL techniques, Progress toward Goal/Update tx plan, Purpose of tx/functional activities, Reviewed precautions, Rehab process, Transfer techniques Teaching Recipient: Patient Teaching Methods: Demonstration, Discussion Response to Teaching: Verbalize Understanding, Return Demonstration OT Short Term Goals Short Term Goals Transfers (B,C,W/C) (FIM): 7 1=Demonstrate adherence to instructed precautions during ADL tasks. 2=Patient will verbalize/demonstrate understanding of assistive devices/ modifications for ADL. 3=Patient will improve strength/tolerance for activity to enable patient to perform ADL's. OT Jail Goals Cytopathology Technologist Goals Time Frame: Apr 10, 2018 Eating (FIM): 6 Grooming(FIM): 6 Bathing(FIM): 5 Upper Body Dressing(FIM): 6 Lower Body Dressing(FIM): 6 Toileting(FIM): 6 Transfers (B,C,W/C) (FIM): 6 Toilet/Commode Transfer(FIM): 6 Shower Transfer(FIM): 5 Additional Goals: 1-Demonstrate ADL Tasks, 2-Verbalize Understanding, 3- ImproveStrength/[place] 1=Demonstrate adherence to instructed precautions during ADL tasks. 2=Patient will verbalize/demonstrate understanding of assistive devices/ modifications for ADL. 3=Patient will improve strength/tolerance for activity to enable patient to perform ADL's. OT Education/Plan Problem List/Assessment Assessment: Decreased Activ Tolerance, Impaired I ADL's, Impaired Self-Care Skills Discharge Recommendations Plan/Recommendations: Continue POC Therapy D/C Recommendations: Acute Rehab Equpiment Recommendations-D/C: Hip Kit Comment Pt. could benefit from ADL training for LE dressing to make tasks easier. Target Placement Home with spouse vs. inpt. rehab depending on pt's progress. Treatment Plan/Plan of Care Treatment,Training & Education: Yes Patient would benefit from OT for education, treatment and training to promote independence in ADL's, mobility, safety and/or upper extremity function for ADL' s. Plan of Care: ADL Retraining, Functional Mobility, UE Funct Exercise/Act Treatment Duration: Apr 10, 2018 Frequency: 5 times per week Estimated Hrs Per Day: .25 hour per day Agreement: Yes Rehab Potential: Good Time/GCodes Start Time: 13:50 Stop Time: 14:15 Total Time Billed (hr/min): 25 Billed Treatment Time 1, EVM x 10minutes, ADL x 15minutes LEX CHAVEZ OT Apr 03, 2018 16:34
[2018-04-03 16:36] VITALS: BP 123/63
[2018-04-03] MEDS ORDERED: cefTRIAXone 1 GM/NS 50 ML IVPB IV SCH ×2 (17:00)
[2018-04-03] MEDS ORDERED: ACETAMINOPHEN 325 MG TABLET PO PRN (17:15)
[2018-04-03] MEDS ORDERED: ACETAMINOPHEN 325 MG TABLET ONE (17:43)
[2018-04-03] MEDS ORDERED: metFORMIN 500 MG (GLUCOPHAGE) TAB PO SCH (18:00)
[2018-04-03] MEDS ORDERED: TAMSULOSIN 0.4 MG (FLOMAX) CAP PO SCH (18:00)
[2018-04-03] MEDS ORDERED: NON-FORMULARY MEDICATION 1 EA EA (Metformin HCl 500 MG) PO SCH (18:00)
[2018-04-03 19:50] VITALS: BP 104/56
[2018-04-04 00:01] VITALS: BP 114/63
[2018-04-04] MEDS: NS IV 1000 ML 1,000 ML IV SCH (02:41)
[2018-04-04 04:07] VITALS: BP 121/68
[2018-04-04] MEDS: inSUlin ASPART (NovoLOG) 1 UNIT/0.01 ML (CHARGE PER UNIT) SC SCH (06:02)
[2018-04-04 06:15] LABS: BASOPHILS % (AUTO) 1 % (0-10); EOSINOPHILS # (AUTO) 0.2 10^3/uL (0.0-0.3); EOSINOPHILS % (AUTO) 3 % (0-10); HEMATOCRIT 32 % (40-54); HEMOGLOBIN 10.2 G/DL (13.3-17.7); LYMPHOCYTES # (AUTO) 1.6 X 10^3 (1.0-4.0); LYMPHOCYTES % (AUTO) 26 % (12-44); MEAN CORPUSCULAR HEMOGLOBIN 29 PG (25-34); MEAN CORPUSCULAR HGB CONC 32 G/DL (32-36); MEAN CORPUSCULAR VOLUME 89 FL (80-99); MEAN PLATELET VOLUME 10.5 FL (7.4-10.4); MONOCYTES # (AUTO) 0.4 X 10^3 (0.0-1.0); MONOCYTES % (AUTO) 6 % (0-12); NEUTROPHILS # (AUTO) 3.9 X 10^3 (1.8-7.8); NEUTROPHILS % (AUTO) 64 % (42-75); PLATELET COUNT 113 10^3/uL (130-400); RED CELL DISTRIBUTION WIDTH 15.5 % (10.0-14.5); WHITE BLOOD COUNT 6.1 10^3/uL (4.3-11.0)
[2018-04-04 06:48] LABS: ALANINE AMINOTRANSFERASE 75 U/L (0-55); ALKALINE PHOSPHATASE 67 U/L (40-136); BILIRUBIN,TOTAL 0.5 MG/DL (0.1-1.0); BUN/CREATININE RATIO 17; CALCIUM 8.6 MG/DL (8.5-10.1); CARBON DIOXIDE 19 MMOL/L (21-32); CHLORIDE 111 MMOL/L (98-107); CREATININE SERUM 0.98 MG/DL (0.60-1.30); GFR ESTIMATED > 60; GLUCOSE 107 MG/DL (70-105); POTASSIUM 3.9 MMOL/L (3.6-5.0); SODIUM 138 MMOL/L (135-145); TOTAL PROTEIN 6.4 GM/DL (6.4-8.2)
[2018-04-04] MEDS ORDERED: metFORMIN 500 MG (GLUCOPHAGE) TAB PO SCH (07:00)
--- NOTE | 2018-04-04 07:14 | Progress Note-Pre Operative ---
Pre-Operative Progress Note H&P Reviewed The H&P was reviewed, patient examined and no changes noted. Date Seen by Provider: Apr 04, 2018 Time Seen by Provider: 07:14 Date H&P Reviewed: Apr 04, 2018 Time H&P Reviewed: 07:14 Pre-Operative Diagnosis: GROSS HEMATURIA AND RETENTION DORITA ABDULLAHI MD Apr 04, 2018 07:14
--- NOTE | 2018-04-04 07:18 | Progress Note-Post Operative ---
Post-Operative Progess Note Surgeon (s)/Size Maker (s) Surgeon DORITA ABDULLAHI MD Size Maker: NONE Pre-Operative Diagnosis GROSS HEMATURIA AND RETENTION Post-Operative Diagnosis SAME Procedure & Operative Findings Date of Procedure 04/04/18 Procedure Performed/Findings CYSTOSCOPY Anesthesia Type LOCAL Estimated Blood Loss Estimated blood loss (mL): NONE Specimens/Packing Specimens Removed NONE Packing: NONE DORITA ABDULLAHI MD Apr 04, 2018 07:18
[2018-04-04 08:26] VITALS: BP 111/61
[2018-04-04] MEDS ORDERED: LIDOCAINE UROJET 2% GEL 10 ML PKG ONE (08:47)
--- NOTE | 2018-04-04 08:55 | Progress Note-Hospitalist ---
Subjective HPI/CC On Admission Date Seen by Provider: Apr 04, 2018 Time Seen by Provider: 09:15 CC: Weakness and fever HPI: This is a 77-year-old white male clinic patient of [facility] in [facility] who presents to the ER with fever and weakness found to have UTI and in need of supportive care to be able to ambulate and gain strength back in order to be discharged home. He takes care of his is wheelchair bound. She has 2 grandchildren taking care of her currently and son drives and from [place] to take care of her also. Patient denies any pain. Conferred with Dr. Elizalde. Cystoscopy will be done tomorrow. Urine culture pending at this time Urology thinks there is some sort of prostate cancer causing this issue. Patient sees patient in the office regularly. To note he had a fall resulting in femur fracture but hardware from former hip replacement was in place with no concern so he is a nonsurgical candidate. Focused Exam Lactate Level 04/02/18 13:27: Lactic Acid Level 1.75 Objective Exam Vital Signs Vital Signs Date Time Temp Pulse Resp B/P (MAP) Pulse Ox O2 Delivery O2 Flow Rate FiO2 04/04/18 08:26 98.5 72 18 111/61 (78) 95 Room Air Capillary Refill : Less Than 3 SecondsLess Than 3 Seconds Results/Procedures Lab Laboratory Tests 04/04/18 05:15 Patient resulted labs reviewed. Diagnosis/Problems Diagnosis/Problems (1) Weakness Status: Acute (2) Ma catheter in place Status: Acute (3) Bladder wall thickening Status: Acute (4) Hyponatremia Status: Acute (5) Diabetes mellitus Status: Chronic Qualifiers: Diabetes mellitus type: type 2 Diabetes mellitus snf insulin use: without terminal clerk use Diabetes mellitus complication status: with unspecified complications Qualified Codes: E11.8 - Type 2 diabetes mellitus with unspecified complications (6) Hypertension Status: Chronic (7) UTI (urinary tract infection) Status: Acute Qualifiers: Urinary tract infection type: acute cystitis Hematuria presence: with hematuria Qualified Codes: N30.01 - Acute cystitis with hematuria (8) LEFT HIP GREATER TROCHANTOR FRACTURE Status: Chronic Clinical Quality Measures DVT/VTE Risk/Contraindication: Risk Factor Score Per Nursin RFS Level Per Nursing on Admit: 4+=Very High VARSHA CABAN DO Apr 04, 2018 08:55
[2018-04-04] MEDS ORDERED: NON-FORMULARY MEDICATION 1 EA EA (Metformin HCl 1,000 MG) PO SCH (09:00)
[2018-04-04] MEDS ORDERED: lisINopril 10 MG (PRINIVIL) TABLET PO SCH (09:00)
[2018-04-04] MEDS ORDERED: Finasteride PO (09:32)
--- NOTE | 2018-04-04 09:34 | Discharge Summary-Hospitalist ---
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 in place Plan: Maintain IV antibiotics Appreciate urology evaluation Physical therapy and occupational therapy Home meds Cystoscopy in the morning Discharge Diagnosis (1) Benign prostatic hyperplasia with hesitancy Status: Acute (2) Weakness Status: Resolved (3) Ma catheter in place Status: Acute (4) Bladder wall thickening Status: Resolved (5) Hyponatremia Status: Resolved (6) Diabetes mellitus Status: Chronic (7) Hypertension Status: Chronic (8) UTI (urinary tract infection) Status: Resolved (9) LEFT HIP GREATER TROCHANTOR FRACTURE Status: Acute Discharge Summary Discharge Physical Exam Allergies: Coded Allergies: No Known Drug Allergies (Unverified , 04/02/18) Vitals & I&Os Vital Signs Date Time Temp Pulse Resp B/P (MAP) Pulse Ox O2 Delivery O2 Flow Rate FiO2 04/04/18 14:00 77 18 132/78 95 Room Air 04/04/18 11:50 99.2 General Appearance: No Apparent Distress, WD/WN Respiratory: Chest Non Tender, Lungs Clear, Normal Breath Sounds, No Accessory Muscle Use, No Respiratory Distress Cardiovascular: Regular Rate, Rhythm, No Edema, No Gallop, No JVD, No Murmur, Normal Peripheral Pulses Neurologic/Psychiatric: Alert, Oriented x3, No Motor/Sensory Deficits, Normal Mood/Affect Hospital Course Was the Problem List Reviewed?: Yes Hospital course: Patient had an uneventful hospital course he was admitted placed on IV antibiotics and IV fluids with close monitoring and urology consultation. He had cystoscopy performed at the bedside revealing large BPH causing obstruction so he was placed on Proscar in addition to maintaining the Flomax but did not require any antibiotics since urine culture was no growth to date. He will have close follow-up with Anurag Briscoe in [place] at [facility]. Labs (last 24 hrs) Laboratory Tests 04/03/18 20:47: Glucometer 122H 04/04/18 05:12: Glucometer 116H 04/04/18 05:15: White Blood Count 6.1, Red Blood Count 3.56L, Hemoglobin 10.2L, Hematocrit 32L, Mean Corpuscular Volume 89, Mean Corpuscular Hemoglobin 29, Mean Corpuscular Hemoglobin Concent 32, Red Cell Distribution Width 15.5H, Platelet Count 113L, Mean Platelet Volume 10.5H, Neutrophils (%) (Auto) 64, Lymphocytes (%) (Auto) 26 , Monocytes (%) (Auto) 6, Eosinophils (%) (Auto) 3, Basophils (%) (Auto) 1, Neutrophils # (Auto) 3.9, Lymphocytes # (Auto) 1.6, Monocytes # (Auto) 0.4, Eosinophils # (Auto) 0.2, Basophils # (Auto) 0.0, Sodium Level 138, Potassium Level 3.9, Chloride Level 111H, Carbon Dioxide Level 19L, Anion Gap 8, Blood Urea Nitrogen 17, Creatinine 0.98, Estimat Glomerular Filtration Rate > 60, BUN/ Creatinine Ratio 17, Glucose Level 107H, Calcium Level 8.6, Corrected Calcium 9.4, Total Bilirubin 0.5, Aspartate Amino Transf (AST/SGOT) 114H, Alanine Aminotransferase (ALT/SGPT) 75H, Alkaline Phosphatase 67, Total Protein 6.4, Albumin 3.0L 04/04/18 09:50: Glucometer 142H Microbiology 04/02/18 Blood Culture - Preliminary, Resulted No growth 04/02/18 Influenza Types A,B Antigen (JONI) - Final, Complete 04/02/18 Urine Culture - Final, Complete NO GROWTH Patient resulted labs reviewed. Pending Labs Discussion & Recommendations Discharge Planning: <30 minutes discharge planning Discharge Home Medications: Active Scripts Active [Finasteride] 5 MG Tab 5 Mg PO DAILY Reported Lisinopril 10 Mg Tablet 10 Mg PO DAILY Metformin HCl 500 Mg Tablet 500 Mg PO 1800 Tamsulosin HCl 0.4 Mg Cap.er.24h 0.4 Mg PO 1800 Aspirin EC (Aspirin) 325 Mg Tablet.dr 325 Mg PO HS Metformin HCl 500 Mg Tablet 1,000 Mg PO DAILY TAKES 2 (500MG) TABLETS Atorvastatin Calcium 40 Mg Tablet 40 Mg PO HS Instructions to patient/family Please see electronic discharge instructions given to patient. Clinical Quality Measures DVT/VTE Risk/Contraindication: Risk Factor Score Per Nursin RFS Level Per Nursing on Admit: 4+=Very High DENA ZULUAGA MEDICAL STUDENT 04/04/18 1206: Diagnosis/Chief Complaint Admission Diagnosis Admitting diagnosis: Persistent UTI, most likely due to prostate obstruction, causing weakness Fall resulting in L greater trochanter fracture Discharge Diagnosis UTI Hx of Prostate CA L greater trochanter fracture Weakness (1) Urinary tract infection Status: Acute (2) Diabetes mellitus Status: Chronic (3) Weakness Status: Resolved (4) LEFT HIP GREATER TROCHANTOR FRACTURE Status: Acute Discharge Summary Procedures/Consulations Urology consulted for UTI and difficulty voiding. Cystoscopy performed. Discharge Physical Exam Allergies: Coded Allergies: No Known Drug Allergies (Unverified , 04/02/18) General Appearance: No Apparent Distress, WD/WN HEENT: Moist Mucous Membranes Respiratory: Chest Non Tender, Lungs Clear, Normal Breath Sounds, No Accessory Muscle Use, No Respiratory Distress Cardiovascular: Regular Rate, Rhythm, No Edema, No Gallop, No Murmur, Normal Peripheral Pulses Gastrointestinal: Normal Bowel Sounds, No Organomegaly, No Pulsatile Mass, Non Tender, Soft Extremity: Normal Capillary Refill, Normal Inspection, Normal Range of Motion, Non Tender, No Calf Tenderness, No Pedal Edema Skin: Warm/Dry Neurologic/Psychiatric: Alert, Oriented x3, No Motor/Sensory Deficits, Normal Mood/Affect Hospital Course Was the Problem List Reviewed?: Yes This is a 77 yo white male who presented to the ER on 04/02/18 after a fall at home. He was too weak to get up and his , who uses a wheelchair, was unable to help. Pt had recently been seen by Dr. Elizalde for difficulty voiding and was diagnosed with UTI and placed on Bactrim. On evaluation in the ED, the pt was to found to have a persistent UTI as well as a L greater trochanter fracture. The pt has a hx of L hip replacement. On XR the hardware was still in place, making the pt a nonsurgical candidate. He was not experiencing any hip pain. The pt was given IV abx for his UTI, Urology was consulted for the persistent UTI, and PT/OT were consulted for therapy and discharge recommendations. Cystoscopy this morning showed no acute abnormality and the current diagnosis is hx of Prostate CA causing obstructive sxs. He is to be started on Procar and will f/u with Dr. Elizalde in 3 weeks. Pt has been evaluated by PT/OT and has been deemed appropriate for discharge home with walker. The pt is to f/u with [facility] in two weeks. 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
[2018-04-04] MEDS ORDERED: FINASTERIDE (PROSCAR) 5 MG TAB PO SCH (09:35)
--- NOTE | 2018-04-04 10:48 | Physical Therapy Daily Note ---
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 Pt reports that he would like to return home. He states that he would need a FWW. Pain Numeric Pain Scale: 0-No Pain Location: No Pain Reported Mental Status Patient Orientation: Person, Place, Situation, Normal For Age Attachments: IV Transfers Therapy Code Descriptions/Definitions Functional [place] Measure: 0=Not Assessed/NA 4=Minimal Assistance 1=Total Assistance 5=Supervision or Setup 2=Maximal Assistance 6=Modified [place] 3=Moderate Assistance 7=Complete [place] Therapy Quality Codes: 6 Independent with activity with or without an assistive device 5 Patient requires set up or clean up by helper. Patient completes activity by themselves 4 Supervision or touching assist (CGA). [place] provide cues , steadying assist 3 The helper provides less than half the effort to complete the activity 2 The helper provides more than half the effort to complete the activity 1 Dependent. The helper does all the effort to complete an activity 7 Patient refused to complete or attempt activity 9 The patient did not perform the activity before the current illness or injury 88 Not attempted due to Medical conditions or safety concerns Transfers (B, C, W/C) (FIM): 6 Scootin Sit to/from Stand: 6 Weight Bearing Right Lower Extremity: Right Full Weight Bearing Left Lower Extremity: Left Full Weight Bearing Gait Training Gait (FIM): 6 Distance (FIM): 3=150 ft Distance: 200' Gait Level of Assist: 6 Gait Persons Needed: 1 Gait Assistive Device: FWW Pt does amb with slow gait speed. PT assisted with IV pole. Assessment Current Status: Good Progress Pt was able to transfer from toilet to FWW using hand rails on wall. Pt was able to perform all bathroom skills indep. Pt amb 200' with FWW and PT only assisted with IV pole. Pt returned to room and is sitting EOB with all needs met. Pt reports he would like to return home and does not want to come to [facility]. He states he needs a FWW to return home. PT related request to protective services social worker. PT Short Term Goals Short Term Goals Time Frame: Apr 10, 2018 Transfers (B,C,W/C) (FIM): 7 Gait (FIM): 6 Distance (FIM): 3=150 ft Gait Distance Comment: 500' Gait Level of Assist: 6 Gait Assistive Device: FWW PT Devulcanizer Head Goals Nursing Home Goals PT Nursing Home Goals Time Frame: Apr 29, 2018 Transfers (B,C,W/C) (FIM): 7 Gait (FIM): 7 Gait distance (FIM): 3=150 ft Distance: 800' Gait Level of Assist: 6 Gait Assistive Device: None, FWW PT Plan Problem List Problem List: Activity Tolerance Treatment/Plan Treatment Plan: Discontinue PT Treatment Plan: Bed Mobility, Education, Functional Activity [place], Functional Strength, Gait, Safety, Therapeutic Exercise, Transfers Treatment Duration: Apr 29, 2018 Frequency: 6 times per week Estimated Hrs Per Day: .25 hour per day Patient and/or Family Agrees t: Yes Discharge Recommendations Therapy D/C Recommendations: Home w/ Family Support, Home Independently Equpiment Recommendations-D/C: Front Wheeled Walker Time/GCodes Time In: 1014 Time Out: 1022 Total Billed Treatment Time: 8 Total Billed Treatment 1 visit GT 8 min CHLOÉ HAN PT Apr 04, 2018 10:48
--- NOTE | 2018-04-04 10:51 | OPERATIVE REPORT ---
DATE OF SERVICE: 04/04/2018 PREOPERATIVE DIAGNOSES: 1. Gross hematuria. 2. Urinary retention. 3. CA of the prostate. POSTOPERATIVE DIAGNOSES: 1. Gross hematuria. 2. Urinary retention. 3. CA of the prostate.. OPERATION PERFORMED: Cystoscopy. SURGEON: Stanton Abdullahi MD ANESTHESIA: Local. COMPLICATIONS: None. DESCRIPTION OF PROCEDURE: With the patient supine in his bed, the Ma catheter was removed and the genitalia were prepped and draped in the usual sterile fashion. Urethra was infiltrated with 2% lidocaine jelly. A penile clamp was applied. This was then removed and a flexible cystoscope was introduced under vision. Anterior urethra was normal. The prostate was enlarged causing bladder neck obstruction and was hyperemic. The bladder was carefully inspected, which revealed 4+ trabeculation with cellules. No foreign body, bladder tumor or stone visualized. Ureteric orifices with clear effluxes. Cystoscope was confirmed in antegrade fashion and the cystoscope was removed. The patient tolerated the procedure and anesthesia well and was left in his bed in stable condition. PLAN: We will leave the catheter out. The patient had no trouble voiding at home. He is to continue his Flomax. We will add Proscar and just place him on Proscar 5 mg daily, and I will see him back in the office in 3 weeks. If he has any trouble voiding, the nursing staff will contact me. Job ID: [id number] DocumentID: [id number] Dictated Date: 04/04/2018 09:28:58 Neonatal Icu Coordinator Date: 04/04/2018 10:51:21 Dictated By: STANTON ABDULLAHI MD
[2018-04-04 11:50] VITALS: BP 132/78
--- NOTE | 2018-04-04 12:58 | NUR ---
CM/SS. Patient chose to discharge back home now that medically stable. DME: New FWW coordinated with patient preferred agency, [employer] [place] in his hometown of [place]. Adjuster And Inspector prearranged with agency, staff will reserve FWW, patient/family will bead picker on way home. No other needs identified at this time by patient.
[2018-04-04 14:00] VITALS: BP 132/78
--- NOTE | 2018-04-04 14:00 | NUR ---
UMAIR RAYA demonstrates understanding of discharge instructions and accurately returns instructions upon questioning. Copy of Post-Discharge Instructions given to PT. UMAIR RAYA is able to manage continuing needs after discharge. Patients belongings returned to PT. Patient discharged from [facility] on 04/04/18 at 1400. UMAIR RAYA left floor via W/C, accompanied by STAFF AND FAMILY PER AUTO.
== END 2018-04-04 14:00 | disposition home or self-care (01) | DRG 690 ==
LOC: EDUNIT# 12:45 → ER 12:45 → 4TH 15:40
PROVIDERS: ADMIT Family Medicine; ATTEND Family Medicine
PROC: 0TJB8ZZ Inspection of Bladder, Via Natural or Artificial Opening Endoscopic (ICD-10-PCS; principal; 2018-04-04 09:05)
DX: N30.01 Acute cystitis with hematuria (principal); E87.1 Hypo-osmolality and hyponatremia; N40.1 Benign prostatic hyperplasia with lower urinary tract symptoms; R39.11 Hesitancy of micturition; N20.0 Calculus of kidney; N32.81 Overactive bladder; S72.112D Displaced fracture of greater trochanter of left femur, subsequent encounter for closed fracture with routine healing; M97.02XD Periprosthetic fracture around internal prosthetic left hip joint, subsequent encounter; E78.00 Pure hypercholesterolemia, unspecified; E11.8 Type 2 diabetes mellitus with unspecified complications; I10 Essential (primary) hypertension; N32.89 Other specified disorders of bladder; R53.1 Weakness; W19.XXXD Unspecified fall, subsequent encounter; Z85.46 Personal history of malignant neoplasm of prostate; Z92.3 Personal history of irradiation; Z79.84 Long term (current) use of oral hypoglycemic drugs
CPT/HCPCS: 36415; 70450; 71045; 74176; 80048; 80053; 81000; 82962; 83605; 84484; 85025; 86141; 87040; 87088; 87804; 93005; 93041; 96361; 96365